=== PATIENT | female | born 1960 | race Caucasian/White ===

== ENCOUNTER 2016-11-27 23:01 | Emergency (ER) | payer OTHER ==
[~2016-11-27] VITALS: Ht 162.6 cm; Wt 99.8 kg
[~2016-11-27 23:01] MED LIST: ACTOS15 MG PO; AUGMENTIN 875 M1 TAB PO; BENADRYL25 M3 PO; GLUCOPHAGE500 MG PO; LANTUS INS100 UNITS/ SUBQ; LASIX40 M1 PO; MOTRIN600 M1 PO; NEURONTIN300 MG PO; NORCO 5/325 MG1 TAB PO; NOVOLIN INSULIN SUBQ; ORETIC25 MG PO; PAXIL40 MG PO; PRAVACHOL40 MG PO; VASOTEC2.5 MG PO
[2016-11-27 23:04] VITALS: BP 119/53
--- NOTE | 2016-11-27 23:18 | NUR ---
PATIENT AMBULATED TO ER BED 5.
--- NOTE | 2016-11-27 23:32 | NUR ---
56/F PRESENT TO ER C/O EPIGASTRIC PAIN x 8 DAYS. PAIN 10/10 BURNING CONTINOUS. PT STATES SHE WAS TAKING PEPTO BISMOL OTC BEFORE ER VISIT. AAOx4, PERRLA, BREATHING EVEN AND UNLABORED. ERMD NOTIFIED OF PATIENT STATUS.
--- NOTE | 2016-11-27 23:35 | NUR ---
PATIENT BEING EVALUATED BY DR. DICKERSON.
[2016-11-27] MEDS ORDERED: NACL 0.9% 500 ML IV ONE (23:36)
[2016-11-27] MEDS ORDERED: ONDANSETRON 4 MG/2 ML VIAL IVP ONE (23:40)
[2016-11-27] MEDS ORDERED: KETOROLAC 30 MG/ML VIAL IVP ONE (23:40)
[2016-11-28] MEDS ORDERED: INSULIN HUMAN REGULAR 100 UNITS/ML 10 ML VIAL IVP ONE (00:25)
[2016-11-28] MEDS ORDERED: NACL 0.9% 1,000 ML IV ONE (00:25)
[2016-11-28 02:17] VITALS: BP 121/63
--- NOTE | 2016-11-28 02:17 | NUR ---
Patient discharged with v/s stable. Written and verbal after care instructions given and explained. Patient alert, oriented and verbalized understanding of instructions. Ambulatory with steady gait. All questions addressed prior to discharge. ID band removed. Patient advised to follow up with PMD. Rx of OMEPRAZOLE, MAALOX given. Patient educated on indication of medication including possible reaction and side effects. Opportunity to ask questions provided and answered.
== END 2016-11-28 02:17 | disposition home or self-care (01) ==
LOC: MED 23:01
DX: K29.70 Gastritis, unspecified, without bleeding (principal); E11.65 Type 2 diabetes mellitus with hyperglycemia; J45.909 Unspecified asthma, uncomplicated; K21.9 Gastro-esophageal reflux disease without esophagitis; I11.0 Hypertensive heart disease with heart failure; I50.9 Heart failure, unspecified; Z85.42 Personal history of malignant neoplasm of other parts of uterus; Z79.899 Other long term (current) drug therapy; Z88.6 Allergy status to analgesic agent; Z88.2 Allergy status to sulfonamides; Z88.8 Allergy status to other drugs, medicaments and biological substances
CPT/HCPCS: 36415; 76705; 80053; 83690; 85025; 93005; 96361; 96374; 96375; 99285; J1815; J1885; J2405; J7030; Q0092

== ENCOUNTER 2016-12-26 00:16 | Inpatient (IN) | payer OTHER ==
[~2016-12-26] VITALS: Ht 162.6 cm; Wt 89.8 kg
[~2016-12-26 00:16] MED LIST changes: -ACTOS15 MG PO; +AMOX-842 PO; -AUGMENTIN 875 M1 TAB PO; -BENADRYL25 M3 PO; +FURO-570 PO; +GABA300C PO; -GLUCOPHAGE500 MG PO; +HYDR-4446 PO; +IBUP-2213 PO; -LANTUS INS100 UNITS/ SUBQ; -LASIX40 M1 PO; +METF500T PO; -MOTRIN600 M1 PO; -NEURONTIN300 MG PO; -NORCO 5/325 MG1 TAB PO; -NOVOLIN INSULIN SUBQ; +ORE25 PO; -ORETIC25 MG PO; +PARO40TA1 PO; -PAXIL40 MG PO; +PRAV40TA1 PO; -PRAVACHOL40 MG PO; +VAS2.5 PO; -VASOTEC2.5 MG PO
[2016-12-26 00:30] VITALS: BP 135/75
--- NOTE | 2016-12-26 01:56 | NUR ---
PT TAKEN TO OF3
[2016-12-26] MEDS ORDERED: NACL 0.9% 1,000 ML IV ONE (02:15)
[2016-12-26] MEDS ORDERED: ONDANSETRON 4 MG/2 ML VIAL IVP ONE (02:15)
--- NOTE | 2016-12-26 02:20 | NUR ---
Dr. Potter evaluating patient
--- NOTE | 2016-12-26 02:22 | NUR ---
PT TAKEN TO XRAY
--- NOTE | 2016-12-26 02:41 | NUR ---
PT MOVED TO BED 8
[2016-12-26 02:44] LABS: WHITE BLOOD COUNT (AUTO) 8.9 K/uL (4.8-10.8)
--- NOTE | 2016-12-26 02:45 | NUR ---
PATIENT PRESENTS TO ED WITH VOMITING, DIZZINESS, WEAKNESS , SHAKING HALF AN HOUR AG. PT SKIN IS PINK/WARM/DRY; AAOX4 WITH EVEN AND STEADY GAIT; LUNGS CLEAR BL; HR EVEN AND REGULAR; PT DENIES ANY FEVER, CP, SOB, OR COUGH AT THIS TIME; PATIENT STATES PAIN OF 10/10 AT THIS TIME; VSS; PATIENT POSITIONED FOR COMFORT; HOB ELEVATED; BEDRAILS UP X2; BED DOWN. ER MD MADE AWARE OF PT STATUS.
[2016-12-26 02:47] LABS: BASOPHILS # (AUTO) 0.3 K/uL (0.00-0.22); BASOPHILS % (AUTO) 3.2 % (0.0-2.0); EOSINOPHILS # (AUTO) 0.2 K/uL (0-0.4); EOSINOPHILS % (AUTO) 2.3 % (0.0-4.0); HEMATOCRIT 43.7 % (36-48); HEMOGLOBIN 14.2 g/dL (12.0-16.0); LYMPHOCYTES # (AUTO) 2.7 K/uL (2.5-16.5); LYMPHOCYTES % (AUTO) 30.8 % (20.5-51.1); MEAN CORPUSCULAR HEMOGLOBIN 28 pg (27-31); MEAN CORPUSCULAR HGB CONC 33 g/dL (33-37); MEAN CORPUSCULAR VOLUME 87 fL (80-94); MONOCYTES # (AUTO) 1.1 K/uL (0.8-1.0); MONOCYTES % (AUTO) 12.2 % (1.7-9.3); NEUTROPHILS # (AUTO) 4.6 K/uL (1.8-7.7); NEUTROPHILS % (AUTO) 51.5 % (42.2-75.2); PLATELET COUNT (AUTO) 248 K/uL (140-450); RED BLOOD CELL COUNT(AUTO) 5.02 MIL/uL (4.20-5.40); RED CELL DISTRIBUTION WIDTH 11.7 % (11.6-13.7)
[2016-12-26 02:56] LABS: ANION GAP 19.7 (8-16); CALCIUM 9.6 mg/dL (8.5-10.1); CARBON DIOXIDE 23.1 mmol/L (21-32); CREATININE 1.8 mg/dL (0.6-1.3); POTASSIUM 3.8 mmol/L (3.5-5.1)
[2016-12-26 03:02] LABS: ALBUMIN 3.8 g/dL (3.4-5.0); TOTAL BILIRUBIN 0.3 mg/dL (0.0-1.0); TOTAL PROTEIN, SERUM 10.1 g/dL (6.4-8.2)
[2016-12-26 03:04] LABS: PARTIAL THROMBOPLASTIN TIME 23.4 secs (22-35.6); PROTHROMBIN TIME 10.6 secs (10.8-13.4)
[2016-12-26] MEDS ORDERED: ONDANSETRON 4 MG/2 ML VIAL IVP PRN (04:10)
--- NOTE | 2016-12-26 05:15 | NUR ---
Admitted from ER, ABLE TO AMBULATE FROM WHEELCHAIR TO BED,with chief complaint of ABDOMINAL PAIN, N/V,D AND CHEST PAIN , 56 y/o ,Female, Cooperative,oriented to call light, bed, phone,television, bathroom, smoking policy, visiting hours, procedures, ID bracelet on. Belongings list checked. BODY CHECKED DONE, NOTED DRYNESS ON BOTH PLANTAR, SKIN WARM TO TOUCH RESP. EVEN AND UNLABORED,NO SOB NOTED, SISTER AT BEDSIDE
--- NOTE | 2016-12-26 05:19 | NUR ---
Patient will be admitted to care of DR LIZARRAGA. Admited to TELE. Will go to room 112B. Belongings list completed. Report to DIANNE BARBOUR.
[2016-12-26 05:20] VITALS: BP 119/54
[2016-12-26 05:38] LABS: CREATINE KINASE MB 0.9 ng/mL (0-3.6)
[2016-12-26] MEDS: NACL 0.9% 1,000 ML IV SCH ×3 (06:10→20:06)
--- NOTE | 2016-12-26 06:24 | NUR ---
BS 335, PT AAO.
[2016-12-26] MEDS: INSULIN LISPRO SLIDING SCALE 100 UNITS/ML VIAL SUBQ PRN ×4 (06:28→20:29)
--- NOTE | 2016-12-26 07:01 | NUR ---
WILL ENDORSE TO INCOMING SHIFT SISTER REQUEST PT TO BE EVALUATED FOR HER DEPRESSION,PT CALM NO CRYING NOTED, ANSWER QUESTION IN A SIMPLE WAY AND THANKFUL TO THE NURSE,IVF ONGOING AT THIS TIME WELL TOLERATED
--- NOTE | 2016-12-26 07:11 | NUR ---
REPORT GIVEN TO NICO RN AT BEDSIDE PT AAO, ENDORSED TO FOLLOW UP WITH THE REQUEST OF SISTER REGARDING DEPRESSION, DENTAL CHECK UP AND THE NEED FOR SEQUENTIAL
--- NOTE | 2016-12-26 07:20 | NUR ---
RECEIVED REPORT FROM DIANNE BARBOUR. PT IS RESTING IN BED, A/OX4, AMBULATORY, SKIN IS INTACT, IV IS ON THE LT AC, PATENT, INTACT, FLUSHING WELL, NO S/S OF RESPIRATORY DISTRESS OR DISCOMFORT NOTED, SAFETY/FALL PRECAUTIONS ARE IN PLACE, DISCUSSED PLAN OF CARE WITH PT, PT VERBALIZED UNDERSTANDING, CALL LIGHT IS WITHIN REACH, WILL CONTINUE TO MONITOR.
[2016-12-26 07:44] LABS: APPEARANCE,URINE CLEAR (CLEAR); BILIRUBIN,URINE 1+ (NEGATIVE); BLOOD, URINE TRACE-I (NEGATIVE); COLOR,URINE YELLOW (YELLOW); LEUKOCYTE ESTERASE ,URINE NEGATIVE (NEGATIVE); NITRITE, URINE NEGATIVE (NEGATIVE); PROTEIN,URINE NEGATIVE (NEGATIVE); UGLUCOSE 3+ (NEGATIVE); UROBILINOGEN,URINE 0.2 EU/dL (0.2 - 1)
[2016-12-26 07:56] LABS: ICTOTEST NEGATIVE (NEGATIVE); RBC,URINE 0-5 (RARE) /HPF (0-5)
[2016-12-26 07:57] LABS: BACTERIA,URINE 2+ /HPF (None Seen); YEAST,URINE Rare /HPF (None Seen)
[2016-12-26 08:00] VITALS: BP 121/59
--- NOTE | 2016-12-26 09:14 | NUR ---
PATIENT HAS BEEN SCREENED AND CATEGORIZED HIGH NUTRITION RISK. PATIENT WILL BE SEEN WITHIN 1-2 DAYS OF ADMISSION. 12/26/16-12/27/[address]
[2016-12-26] MEDS: ENOXAPARIN 40 MG/0.4 ML SYR SUBQ SCH (09:38)
--- NOTE | 2016-12-26 10:00 | NUR ---
IV ON THE LEFT AC INFILTRATED, IV REMOVED, CATHETER TIP IS INTACT, WILL START A NEW IV.
--- NOTE | 2016-12-26 10:30 | NUR ---
NEW IV INSERTED ON THE RT FOREARM, 22 GAUGE, PATENT, INTACT, FLUSHING WELL.
[2016-12-26 10:48] LABS: CREATINE KINASE MB 0.6 ng/mL (0-3.6)
[2016-12-26 12:00] VITALS: BP 122/59
--- NOTE | 2016-12-26 12:30 | NUR ---
PT SLEEPING IN BED, NO S/S OF RESPIRATORY DISTRESS OR DISCOMFORT NOTED, CALL LIGHT WITHIN REACH.
--- NOTE | 2016-12-26 14:35 | NUR ---
PT RESTING IN BED AT THIS TIME, FAMILY IS AT BEDSIDE, CALL LIGHT WITHIN REACH.
--- NOTE | 2016-12-26 15:58 | NUR ---
12/26/16 RD INITIAL ASSESSMENT COMPLETED PLEASE REFER TO NUTRITION ASSESSMENT UNDER CARE ACTIVITY FOR ESTIMATED NUTRITIONAL NEEDS. RD RECOMMENDATIONS: 1. CONTINUE CCHO 60 GM DIET MEDICALLY APPROPRIATE. -CONSIDER DOWNGRADING DIET IF PT CANNOT TOLERATE DIET OR CONSULT ST FOR TEXTURE RECOMMENDATIONS PER SWALLOW EVAL. 2. RD WILL ADD DIET HEALTHSHAKE TID WITH MEALS FOR ADDITIONAL KCAL AND PROTEIN. -ONE DIET HEALTH SHAKE PROVIDES 200 KCAL AND 7 GM OF PROTEIN. 3. ENCOURAGE INCREASED PO INTAKE PT WITH POOR APPETITE AND POOR PO INTAKE. 4. IF PT STILL WITH POOR PO INTAKE, CONSIDER ADDING BOOST DM TID WITH MEALS FOR ADDITIONAL ENERGY REPLETION. 5. RD WILL F/U 2-3 DAYS; HIGH RISK. NI MERINO RD
[2016-12-26 16:00] VITALS: BP 134/65
[2016-12-26] MEDS: BLOOD GLUCOSE MONITORING 1 DEV DEV FS SCH ×2 (16:20→20:30)
--- NOTE | 2016-12-26 16:35 | NUR ---
PT SITTING ON CHAIR AT BEDSIDE, FAMILY IS AT BEDSIDE, CALL LIGHT WITHIN REACH.
[2016-12-26] MEDS: GABAPENTIN 300 MG CAP PO SCH (16:39)
--- NOTE | 2016-12-26 19:07 | NUR ---
PAGED DR. LIZARRAGA TO OBTAIN MEDICATION ORDER FOR HEADACHE.
--- NOTE | 2016-12-26 19:10 | NUR ---
PER DR. DESAI'S URBAN RENEWAL MANAGER DOCTOR ORDER TYLENOL 650MG, Q4HR, PRN MODERATE PAIN AND NORCO 5/325MG Q6H, PRN, SEVERE PAIN.
--- NOTE | 2016-12-26 19:15 | NUR ---
ENDORSED PT TO DIANNE MTZ. FOR CONTINUITY OF CARE. PT STABLE AT THIS TIME, FAMILY IS AT BEDSIDE.
--- NOTE | 2016-12-26 19:20 | NUR ---
RECEIVED PT AWAKE SITTING ON CHAIR TALKING TO FAMILY MEMBERS IN THE ROOM, VITAL SIGNS STABLE, COMPLAINING OF HEADACHE, WILL MEDICATE PRN, NO DIARRHEA EPISODE AT THIS TIME, AWARE TO COLLECT STOOL FOR TEST, SPECIMEN BOTTLE AT BEDSIDE, PLAN OF CARE DISCUSSED, SAFETY MEASURES IN PLACE, CALL LIGHT WITHIN REACH.
[2016-12-26 19:21] LABS: CREATINE KINASE MB 0.4 ng/mL (0-3.6)
[2016-12-26 20:00] VITALS: BP 128/67
[2016-12-26] MEDS ORDERED: ACETAMINOPHEN 325 MG TAB PO PRN (20:00)
[2016-12-26] MEDS ORDERED: HYDROcodone/APAP 5/325 MG 1 TAB TAB PO PRN (20:00)
--- NOTE | 2016-12-26 20:30 | NUR ---
BLOOD SUGAR CHECKED WITH 213 RESULT, COVERAGE GIVEN, MEDICATED PRN FOR HEADACHE WITH NORCO PO, ALL NEEDS ATTENDED.
[2016-12-26] MEDS ORDERED: SIMVASTATIN 20 MG TAB PO SCH (21:00)
[2016-12-27] VITALS: BP 124/70
--- NOTE | 2016-12-27 | NUR ---
PT SLEEPING, EASILY AROUSABLE, VITAL SIGNS STABLE, DENIES ANY PAIN, NO EPISODE OF DIARRHEA NOTED, IVF INFUSING WELL, MONITORED CLOSELY.
[2016-12-27] MEDS: NACL 0.9% 1,000 ML IV SCH ×3 (00:19→12:11)
--- NOTE | 2016-12-27 03:50 | NUR ---
PT SLEEPING, EASILY AROUSABLE, VITAL SIGNS STABLE, DENIES ANY PAIN, MONITORED CLOSELY.
[2016-12-27 04:00] VITALS: BP 115/61
[2016-12-27 05:57] LABS: BASOPHILS # (AUTO) 0.2 K/uL (0.00-0.22); BASOPHILS % (AUTO) 3.3 % (0.0-2.0); EOSINOPHILS # (AUTO) 0.2 K/uL (0-0.4); EOSINOPHILS % (AUTO) 3.6 % (0.0-4.0); HEMATOCRIT 33.3 % (36-48); HEMOGLOBIN 10.7 g/dL (12.0-16.0); LYMPHOCYTES # (AUTO) 2.5 K/uL (2.5-16.5); LYMPHOCYTES % (AUTO) 43.2 % (20.5-51.1); MEAN CORPUSCULAR HEMOGLOBIN 28 pg (27-31); MEAN CORPUSCULAR HGB CONC 32 g/dL (33-37); MEAN CORPUSCULAR VOLUME 88 fL (80-94); MONOCYTES # (AUTO) 0.4 K/uL (0.8-1.0); MONOCYTES % (AUTO) 7.8 % (1.7-9.3); NEUTROPHILS # (AUTO) 2.4 K/uL (1.8-7.7); NEUTROPHILS % (AUTO) 42.1 % (42.2-75.2); PLATELET COUNT (AUTO) 172 K/uL (140-450); RED BLOOD CELL COUNT(AUTO) 3.79 MIL/uL (4.20-5.40); RED CELL DISTRIBUTION WIDTH 11.8 % (11.6-13.7); WHITE BLOOD COUNT (AUTO) 5.7 K/uL (4.8-10.8)
[2016-12-27] MEDS: INSULIN LISPRO SLIDING SCALE 100 UNITS/ML VIAL SUBQ PRN ×2 (06:03→12:32)
--- NOTE | 2016-12-27 06:05 | NUR ---
AMBULATED TO BR AND VOIDED FREELY, NO DIARRHEA THE WHOLE SHIFT, BLOOD SUGAR CHECKED WITH 156 RESULT, COVERAGE GIVEN, DENIES HEADACHE, IVF INFUSING WELL, MONITORED CLOSELY.
[2016-12-27 06:19] LABS: ANION GAP 13.5 (8-16); CALCIUM 7.8 mg/dL (8.5-10.1); CARBON DIOXIDE 24.5 mmol/L (21-32); CREATININE 1.1 mg/dL (0.6-1.3)
[2016-12-27 06:30] LABS: MAGNESIUM 1.8 mg/dL (1.8-2.4); PHOSPHORUS 3.2 mg/dL (2.5-4.9)
[2016-12-27] MEDS: BLOOD GLUCOSE MONITORING 1 DEV DEV FS SCH ×2 (06:44→11:46)
--- NOTE | 2016-12-27 07:29 | NUR ---
PT AWAKE, NO SIGNS OF DISTRESS, REPORT GIVEN TO DIANNE WALSH FOR CONTINUITY OF CARE.
--- NOTE | 2016-12-27 07:30 | NUR ---
RECEIVED REPORT FROM DIANNE MTZ. PT IS RESTING IN BED, A/OX4, AMBULATORY, SKIN IS INTACT, IV IS ON THE RIGHT FA, PATENT, INTACT, FLUSHING WELL, NO S/S OF RESPIRATORY DISTRESS OR DISCOMFORT NOTED, SAFETY/FALL PRECAUTIONS ARE IN PLACE, DISCUSSED PLAN OF CARE WITH PT, PT VERBALIZED UNDERSTANDING, CALL LIGHT IS WITHIN REACH, WILL CONTINUE TO MONITOR.
[2016-12-27 08:00] VITALS: BP 114/58
--- NOTE | 2016-12-27 08:27 | NUR ---
DUE MEDICATIONS GIVEN, PT TOLERATED WELL, NO S/S OF RESPIRATORY DISTRESS OR DISCOMFORT NOTED, CALL LIGHT WITHIN REACH, WILL CONTINUE TO MONITOR.
[2016-12-27] MEDS: GABAPENTIN 300 MG CAP PO SCH ×2 (08:28→12:37)
[2016-12-27] MEDS: ENOXAPARIN 40 MG/0.4 ML SYR SUBQ SCH (08:34)
[2016-12-27] MEDS ORDERED: PARoxetine 20 MG TAB PO SCH (09:00)
[2016-12-27] MEDS ORDERED: CLINICAL MONITORING MC SCH (09:00)
[2016-12-27] MEDS ORDERED: HYDROCHLOROTHIAZIDE 25 MG TAB PO SCH (09:00)
[2016-12-27] MEDS ORDERED: ASPIRIN 81 MG TAB.CHEW PO SCH (09:00)
[2016-12-27] MEDS ORDERED: ENALAPRIL 10 MG TAB PO SCH (09:00)
[2016-12-27] MEDS ORDERED: NON-FORMULARY ITEM (Pravastatin Sodium* (Pravachol*) 40 MG) PO SCH (09:00)
--- NOTE | 2016-12-27 10:30 | NUR ---
PT SLEEPING IN BED AT THIS TIME, CALL LIGHT WITHIN REACH, WILL CONTINUE TO MONITOR.
[2016-12-27 12:00] VITALS: BP 119/61
--- NOTE | 2016-12-27 12:30 | NUR ---
PT SITTING IN BED, WATCHING TV, CALL LIGHT IS WITHIN REACH, WILL CONTINUE TO MONITOR.
--- NOTE | 2016-12-27 14:40 | NUR ---
PT SITTING ON CHAIR AT THE SIDE OF THE BED, SISTER IS AT BEDSIDE.
--- NOTE | 2016-12-27 16:00 | NUR ---
DISCHARGE INSTRUCTIONS GIVEN, ID WRIST BAND REMOVED, IV REMOVED CATHETER TIP IS INTACT. PT STABLE UPON DISCHARGE ACCOMPANIED BY HER SISTER.
== END 2016-12-27 16:00 | disposition home or self-care (01) | DRG 203 ==
LOC: MED 00:16 → OBSVTOIN 04:13 → INTOOBSV 04:13 → UNDOADMOB 04:13 → MTU 04:13 → OBSVTOIN 13:44 → MTU 13:44 → UNDODISIN 17:30
PROVIDERS: ADMIT Hospitalist; ATTEND Hospitalist
DX: R07.89 Other chest pain (principal); E11.22 Type 2 diabetes mellitus with diabetic chronic kidney disease; I13.0 Hypertensive heart and chronic kidney disease with heart failure and stage 1 through stage 4 chronic kidney disease, or unspecified chronic kidney disease; I50.9 Heart failure, unspecified; A08.4 Viral intestinal infection, unspecified; F32.9 Major depressive disorder, single episode, unspecified; E78.5 Hyperlipidemia, unspecified; E66.9 Obesity, unspecified; N18.9 Chronic kidney disease, unspecified; J45.909 Unspecified asthma, uncomplicated; K21.9 Gastro-esophageal reflux disease without esophagitis; Z88.1 Allergy status to other antibiotic agents; Z88.8 Allergy status to other drugs, medicaments and biological substances; Z85.42 Personal history of malignant neoplasm of other parts of uterus; Z68.34 Body mass index [BMI] 34.0-34.9, adult; Z88.2 Allergy status to sulfonamides
CPT/HCPCS: 36415; 71010; 80048; 80053; 81001; 82550; 82553; 82948; 83735; 84100; 84484; 85025; 85610; 85730; 87081; 87086; 93005; 96361; 96374; 99285; J1650; J1815; J2405; J7030

== ENCOUNTER 2018-04-09 00:21 | Emergency (ER) | payer OTHER ==
[~2018-04-09] VITALS: Ht 172.7 cm; Wt 98.2 kg
[~2018-04-09 00:21] MED LIST changes: +ACET-8386 PO; -AMOX-842 PO; -HYDR-4446 PO
[2018-04-09 00:29] VITALS: BP 196/86
--- NOTE | 2018-04-09 00:35 | NUR ---
PT PRESENTS TO ED WITH C/O COUGH AND SOB. PT DENIES ANY CHEST PAIN AT THIS TIME. LUNGS CLEAR BILATERALLY UPON ASCULATATION. CHEST RISE IS EQUAL AND RESPIRATIONS ARE UNLABORED. PT ALSO REPORTS BLOOD IN STOOL X TODAY. PT DENIES ANY HX OF GI BLEED OR ANY GI HISTORY. NO N/V/D. BOWEL SOPUNDS HEARD X 4 QUADRANTS. ABDOMEN IS SOFT AND NON TENDER UPON PALAPTION. PT PLACED IN BED. PENDING MD MARIE.
--- NOTE | 2018-04-09 00:54 | NUR ---
EKG PERFORMED AT BEDSIDE. PT COVERED IN GOWN DURING PROCEDURE WITH FAMILY MEMBER PRESENT.
--- NOTE | 2018-04-09 01:40 | NUR ---
LAB AT BEDSIDE.
[2018-04-09 01:48] LABS: BASOPHILS # (AUTO) 0.2 K/uL (0.00-0.22); BASOPHILS % (AUTO) 2.8 % (0.0-2.0); EOSINOPHILS # (AUTO) 0.2 K/uL (0-0.4); EOSINOPHILS % (AUTO) 3.4 % (0.0-4.0); HEMATOCRIT 31.2 % (36-48); HEMOGLOBIN 10.1 g/dL (12.0-16.0); LYMPHOCYTES # (AUTO) 1.9 K/uL (2.5-16.5); LYMPHOCYTES % (AUTO) 27.8 % (20.5-51.1); MEAN CORPUSCULAR HEMOGLOBIN 29 pg (27-31); MEAN CORPUSCULAR HGB CONC 32 g/dL (33-37); MEAN CORPUSCULAR VOLUME 88.3 fL (80-94); MONOCYTES # (AUTO) 0.4 K/uL (0.8-1.0); MONOCYTES % (AUTO) 5.7 % (1.7-9.3); NEUTROPHILS # (AUTO) 4.2 K/uL (1.8-7.7); NEUTROPHILS % (AUTO) 60.3 % (42.2-75.2); PLATELET COUNT (AUTO) 240 K/uL (140-450); RED BLOOD CELL COUNT(AUTO) 3.54 MIL/uL (4.20-5.40); RED CELL DISTRIBUTION WIDTH 13.4 % (11.6-13.7)
--- NOTE | 2018-04-09 02:02 | NUR ---
PT RESTING IN BED, NO COMPLAINTS AT THIS TIME. VSS.
[2018-04-09 02:06] LABS: ANION GAP 10.6 (8-16); CARBON DIOXIDE 24.4 mmol/L (21-32); CREATININE 2.8 mg/dL (0.6-1.3)
[2018-04-09 02:12] LABS: ALBUMIN 2.5 g/dL (3.4-5.0); TOTAL BILIRUBIN 0.2 mg/dL (0.0-1.0)
[2018-04-09] MEDS ORDERED: ERGO2000 PO (02:15)
[2018-04-09] MEDS ORDERED: GABA100C PO (02:15)
[2018-04-09] MEDS ORDERED: ASPI81CT PO (02:15)
[2018-04-09] MEDS ORDERED: PRAV40TA1 PO (02:15)
[2018-04-09] MEDS ORDERED: LORA1T PO (02:15)
[2018-04-09] MEDS ORDERED: ALBUTEROL 0.083% 2.5 MG/3 ML NEBU INH ONE (04:05)
[2018-04-09] MEDS ORDERED: IPRATROPIUM 0.02% 0.5 MG/2.5 ML NEBU INH ONE (04:05)
--- NOTE | 2018-04-09 04:15 | NUR ---
RT AT BEDSIDE AT THIS TIME.
--- NOTE | 2018-04-09 05:33 | NUR ---
PENDING DISCHARGE ORDERS FROM DR HOFF AT THIS TIME.
[2018-04-09 06:53] VITALS: BP 168/88
== END 2018-04-09 06:53 | disposition home or self-care (01) ==
LOC: MED 00:21
DX: R05 Cough (principal); R06.02 Shortness of breath; J45.909 Unspecified asthma, uncomplicated; I10 Essential (primary) hypertension; E11.9 Type 2 diabetes mellitus without complications
CPT/HCPCS: 36415; 71045; 80053; 82948; 83605; 84484; 85025; 86886; 86900; 86901; 93005; 94640; 99285; J7613; J7644; Q0092

== ENCOUNTER 2018-06-19 18:56 | Emergency (ER) | payer OTHER ==
[~2018-06-19] VITALS: Ht 162.6 cm; Wt 97.1 kg
[~2018-06-19 18:56] MED LIST changes: -ACET-8386 PO; +ASPI81CT PO; +ERGO2000 PO; +GABA100C PO; -GABA300C PO; +LORA1T PO; -METF500T PO; -ORE25 PO
[2018-06-19 18:57] VITALS: BP 179/75
--- NOTE | 2018-06-19 18:57 | NUR ---
PT BIBA BLS TO BED 6
--- NOTE | 2018-06-19 19:00 | NUR ---
PT BIBA S/P MECH FALL AT HOME , C/O RT ARM/ SHOULDER PAIN AND RT LEG PAIN. +CMS TO RT ARM , NO OBVIOUS DEFORMITY NOTED TO SHOULDER. PT IS AWAKE AND ACTING APPROPRIATE, PT STATES SHE "CANT SEE WELL" AND TRIPPED OVER "SOMETHING". PMH HTN, HLD, DM
--- NOTE | 2018-06-19 19:00 | NUR ---
PT TO XRAY VIA [facility].
--- NOTE | 2018-06-19 19:42 | NUR ---
PT RETURNED FROM XRAY.
--- NOTE | 2018-06-19 19:42 | NUR ---
PT RETURN FROM RADIOLOGY
[2018-06-19] MEDS ORDERED: ONDANSETRON 4 MG ODT PO ONE (19:55)
[2018-06-19] MEDS ORDERED: HYDROcodone/APAP 10/325 MG 1 TAB TAB PO ONE (19:55)
--- NOTE | 2018-06-19 20:25 | NUR ---
X-Ray at bedside.
--- NOTE | 2018-06-19 21:15 | NUR ---
PT C/O PAIN AND WANTS PAIN RELIEF SOONER THAN PO PILLS WILL TAKE EFFECT, ER MD AWARE OF PT STATUS.
[2018-06-19] MEDS ORDERED: MORPHINE SULFATE 4 MG/ML SYR IVP ONE (21:25)
[2018-06-19] MEDS: CYCLOBENZAPRINE 10 MG TAB PO ONE ×2 (21:25→22:05)
[2018-06-19] MEDS ORDERED: diphenhydrAMINE 50 MG/ML VIAL IVP ONE (21:25)
[2018-06-19 22:13] VITALS: BP 167/68
--- NOTE | 2018-06-19 22:13 | NUR ---
Patient discharged with v/s stable. Written and verbal after care instructions given and explained. Patient alert, oriented and verbalized understanding of instructions. Wheel Chair Assisted with to car. All questions addressed prior to discharge. ID band removed. Patient advised to follow up with PMD. Rx of ISABEL CARLTON given. Patient educated on indication of medication including possible reaction and side effects. Opportunity to ask questions provided and answered.
== END 2018-06-19 22:13 | disposition home or self-care (01) ==
LOC: MED 18:56
DX: S42.201A Unspecified fracture of upper end of right humerus, initial encounter for closed fracture (principal); S20.211A Contusion of right front wall of thorax, initial encounter; J45.909 Unspecified asthma, uncomplicated; I11.0 Hypertensive heart disease with heart failure; I50.9 Heart failure, unspecified; E11.9 Type 2 diabetes mellitus without complications; K21.9 Gastro-esophageal reflux disease without esophagitis; Z88.1 Allergy status to other antibiotic agents; Z88.8 Allergy status to other drugs, medicaments and biological substances; Z88.2 Allergy status to sulfonamides; Z79.1 Long term (current) use of non-steroidal anti-inflammatories (NSAID); Z79.899 Other long term (current) drug therapy; Z85.42 Personal history of malignant neoplasm of other parts of uterus; W01.0XXA Fall on same level from slipping, tripping and stumbling without subsequent striking against object, initial encounter; Y93.89 Activity, other specified; Y92.89 Other specified places as the place of occurrence of the external cause; Y99.8 Other external cause status
CPT/HCPCS: 71101; 73030; 73060; 73080; 73110; 96374; 96375; 99283; J1200; J2270; Q0092; Q0162

== ENCOUNTER 2020-02-07 10:17 | Inpatient (IN) | payer OTHER, SELFPAY ==
[~2020-02-07] VITALS: Ht 160 cm; Wt 86.6 kg
[2020-02-07 10:24] VITALS: BP 147/60
--- NOTE | 2020-02-07 10:25 | NUR ---
BIBA C/O FEVER, SOB, AND COUGH X THIS AM. NON-PRODUCTIVE COUGH. LUNGS CLEAR BILTERALLY. RR EVEN AND UNLABORED. PT ON 95% RA. FEBRILE. HR 102. ST. PT STATES SHE WAS TESTED FOR COVID 2 WEEKS AGO AND IT RETURNED NEGATIVE. DENIES EXPOSURE. DIALYSIS M,W,F-DID NOT RECEIVE TODAY, L ARM ASCESS PMH- HTN, GERD, DM
--- NOTE | 2020-02-07 10:27 | NUR ---
ORAL TEMP 102.4, TYLENOL PO ADMINISTERED
[2020-02-07] MEDS ORDERED: ACETAMINOPHEN EXTRA STRENGTH 500 MG TAB PO ONE (10:30)
[2020-02-07] MEDS ORDERED: AMLO10TA PO (10:40)
[2020-02-07] MEDS ORDERED: OMEP-283 PO (10:40)
[2020-02-07] MEDS ORDERED: OMEP20TC22 PO (10:40)
[2020-02-07] MEDS ORDERED: GABA300C PO (10:43)
[2020-02-07] MEDS ORDERED: SEVE800T6 PO (10:43)
[2020-02-07] MEDS ORDERED: SYN.075 PO (10:46)
[2020-02-07] MEDS ORDERED: PAX20 PO (10:46)
[2020-02-07] MEDS ORDERED: FURO-572 PO (10:46)
[2020-02-07] MEDS ORDERED: VIT D2 PO (10:46)
[2020-02-07] MEDS ORDERED: ASPI-1822 PO (10:47)
[2020-02-07] MEDS ORDERED: NACL 0.9% 1,000 ML IV ONE (10:50)
--- NOTE | 2020-02-07 11:08 | NUR ---
IV INSERTED,LABS DRAWN BEDSIDE, BOLUS STARTED
[2020-02-07 11:09] LABS: BASOPHILS # (AUTO) 0.1 K/uL (0.00-0.22); BASOPHILS % (AUTO) 0.5 % (0.0-2.0); EOSINOPHILS # (AUTO) 0.1 K/uL (0-0.4); HEMATOCRIT 23.8 % (36-48); HEMOGLOBIN 7.5 g/dL (12.0-16.0); LYMPHOCYTES # (AUTO) 0.7 K/uL (2.5-16.5); LYMPHOCYTES % (AUTO) 5.5 % (20.5-51.1); MEAN CORPUSCULAR HEMOGLOBIN 28 pg (27-31); MEAN CORPUSCULAR HGB CONC 31 g/dL (33-37); MEAN CORPUSCULAR VOLUME 89.2 fL (80-94); MONOCYTES # (AUTO) 0.8 K/uL (0.8-1.0); MONOCYTES % (AUTO) 6.5 % (1.7-9.3); NEUTROPHILS # (AUTO) 11.2 K/uL (1.8-7.7); NEUTROPHILS % (AUTO) 86.5 % (42.2-75.2); PLATELET COUNT (AUTO) 314 K/uL (140-450); RED BLOOD CELL COUNT(AUTO) 2.67 MIL/uL (4.20-5.40); RED CELL DISTRIBUTION WIDTH 15.4 % (11.6-13.7); WHITE BLOOD COUNT (AUTO) 12.9 K/uL (4.8-10.8)
[2020-02-07 11:32] LABS: ALBUMIN 2.5 g/dL (3.4-5.0); ANION GAP 22.8 (8-16); POTASSIUM 5.8 mmol/L (3.5-5.1); TOTAL BILIRUBIN 0.3 mg/dL (0.0-1.0)
--- NOTE | 2020-02-07 11:33 | NUR ---
CR 11.6 AND BUN 83, REPORTED TO DR AMAYA
[2020-02-07 11:34] LABS: CREATININE 11.6 mg/dL (0.6-1.3)
--- NOTE | 2020-02-07 13:18 | NUR ---
PT NOW AFEBRILE. CURRENT TEMP 98.7 ORALLY.
--- NOTE | 2020-02-07 13:49 | NUR ---
PT MONIQUE MADE AWARE OF PTS POTASSIUM
[2020-02-07] MEDS ORDERED: ONDANSETRON 4 MG/2 ML VIAL IVP PRN (13:55)
[2020-02-07] MEDS ORDERED: HYDROcodone/APAP 5/325 MG 1 TAB TAB PO PRN ×2 (13:55)
[2020-02-07] MEDS ORDERED: ACETAMINOPHEN 325 MG TAB PO PRN (13:55)
[2020-02-07] MEDS ORDERED: CALCIUM GLUCONATE 10% 1000 MG/10 ML VIAL IVP SCH (14:30)
[2020-02-07] MEDS ORDERED: SODIUM ZIRCONIUM CYCLOSILICATE 10 GM POWD.PACK PO SCH (14:30)
[2020-02-07] MEDS ORDERED: LEVOFLOXACIN 500 MG/D5W PREMIX 100 ML IV SCH (14:30)
--- NOTE | 2020-02-07 15:00 | NUR ---
LASIX IVP ADMINISTERED BY LISS DEAN
[2020-02-07] MEDS: FUROSEMIDE 40 MG/4 ML VIAL IVP SCH ×2 (15:04→16:34)
--- NOTE | 2020-02-07 15:35 | NUR ---
BS 285, INSULIN TO BE ADMINISTERED
[2020-02-07] MEDS: INSULIN LISPRO SLIDING SCALE 100 UNITS/ML VIAL SUBQ PRN (15:46)
--- NOTE | 2020-02-07 16:00 | NUR ---
PT UNABLE TO PROVIDE URINE AT THIS TIME
--- NOTE | 2020-02-07 18:00 | NUR ---
Patient will be admitted to care of [facility]. Admited to TELE. Will go to room 114. Belongings list completed. Report to WILLIE DEAN.
[2020-02-07 18:03] VITALS: BP 133/62
--- NOTE | 2020-02-07 18:39 | NUR ---
received almost 6 pm. oriented to unit, call light and plan of care. verbalized understanding.
--- NOTE | 2020-02-07 19:30 | NUR ---
RECEIVED BEDSIDE ENDORSEMENT FROM AM SHIFT RN. AOX3. PATIENT IS NOT IN DISTRESS, RESPIRATION EVEN AND UNLABORED, NO SOB, DENIES PAIN, LOW BED IN PLACE, DROPLET PRECAUTION OBSERVED AT ALL TIMES. PLAN OF CARE DISCUSSED. CALL LIGHT WITHIN REACH.
--- NOTE | 2020-02-07 20:03 | NUR ---
HEPARIN GIVEN ORDERED, TOLERATED WELL. MED EDUCATION PROVIDED.
--- NOTE | 2020-02-07 22:33 | NUR ---
DIALYSIS WAS FINISHED WITH 2,600 L OUT. PATIENT TOLERATED WELL.
[2020-02-08] VITALS: BP 126/56
--- NOTE | 2020-02-08 | NUR ---
V/S TAKEN AND RECORDED. V/S WNL.
--- NOTE | 2020-02-08 02:02 | NUR ---
PATIENT SLEEPING, RESPIRATION EVEN AND UNLABORED.
[2020-02-08 04:00] VITALS: BP 148/59
[2020-02-08] MEDS: LEVOTHYROXINE 0.075 MG TAB PO SCH (05:47)
--- NOTE | 2020-02-08 05:47 | NUR ---
DUE MEDS GIVEN ORDERED, TOLERATED WELL, KEPT CLEAN, DRY AND COMFORTABLE.
[2020-02-08 07:08] LABS: BASOPHILS # (AUTO) 0.1 K/uL (0.00-0.22); BASOPHILS % (AUTO) 0.7 % (0.0-2.0); EOSINOPHILS # (AUTO) 0.2 K/uL (0-0.4); EOSINOPHILS % (AUTO) 2.6 % (0.0-4.0); HEMATOCRIT 22.5 % (36-48); HEMOGLOBIN 7.3 g/dL (12.0-16.0); LYMPHOCYTES # (AUTO) 1.7 K/uL (2.5-16.5); LYMPHOCYTES % (AUTO) 19.3 % (20.5-51.1); MEAN CORPUSCULAR HEMOGLOBIN 29 pg (27-31); MEAN CORPUSCULAR HGB CONC 32 g/dL (33-37); MEAN CORPUSCULAR VOLUME 89.4 fL (80-94); MONOCYTES # (AUTO) 0.7 K/uL (0.8-1.0); MONOCYTES % (AUTO) 7.9 % (1.7-9.3); NEUTROPHILS # (AUTO) 6.2 K/uL (1.8-7.7); NEUTROPHILS % (AUTO) 69.5 % (42.2-75.2); PLATELET COUNT (AUTO) 282 K/uL (140-450); RED BLOOD CELL COUNT(AUTO) 2.52 MIL/uL (4.20-5.40); RED CELL DISTRIBUTION WIDTH 16.1 % (11.6-13.7)
--- NOTE | 2020-02-08 07:15 | NUR ---
PATIENT IS IN STABLE CONDITION. ENDORSED TO AM SHIFT RN FOR CONTINUITY OF CARE.
[2020-02-08 07:39] LABS: ALBUMIN 2.2 g/dL (3.4-5.0); ANION GAP 18.4 (8-16); CARBON DIOXIDE 26.5 mmol/L (21-32); POTASSIUM 3.9 mmol/L (3.5-5.1); TOTAL BILIRUBIN 0.3 mg/dL (0.0-1.0)
[2020-02-08] MEDS: INSULIN LISPRO SLIDING SCALE 100 UNITS/ML VIAL SUBQ PRN ×4 (07:52→20:45)
[2020-02-08 08:00] VITALS: BP 127/54
[2020-02-08] MEDS: FUROSEMIDE 40 MG/4 ML VIAL IVP SCH ×2 (08:02→17:10)
[2020-02-08 08:08] LABS: CREATININE 8.1 mg/dL (0.6-1.3)
--- NOTE | 2020-02-08 09:03 | NUR ---
PATIENT HAS BEEN SCREENED AND CATEGORIZED MODERATE NUTRITION RISK. PATIENT WILL BE SEEN WITHIN 3-5 DAYS OF ADMISSION. 02/10/20 02/12/[address]
[2020-02-08] MEDS: ASPIRIN 81 MG TAB.CHEW PO SCH (09:09)
[2020-02-08] MEDS: PARoxetine 20 MG TAB PO SCH (09:09)
[2020-02-08] MEDS: GABAPENTIN 300 MG CAP PO SCH (09:09)
--- NOTE | 2020-02-08 11:55 | NUR ---
MERCHANT TAILOR NOTE: Patient's Orientation Unable To Assess Information Provided By JOSE GUADALUPE MARROQUIN - SISTER Comments SW WAS UNABLE TO MEET PATIENT AT BEDSIDE DUE TO MEDICAL CONDITION. Schedule Supervisor, Realtionship and Phone Number JOSE GUADALUPE MARROQUIN SISTER [phone] Healthcare Power of Financial Service Representative No Does Patient Have a POLST No Identifying Problems No Social Work Triggers Is A Social Work Consult Needed No Mandate Report Filed No Explanation Of Identifying Problems PATIENT IS A 59-YEAR-OLD FEMALE ADMITTED FOR FLUID OVERLOAD. PATIENT HAS PMHX OF DM, GERD, AND HYPOTHYROIDISM. Admitted From Home Pre-Admission Level Of Functioning Status Total Care Prior Resources/Services Used In Last 12 Months IHSS Prior Resources/Service Comments PER ABDON, PATIENT RECEIVES 103 HOURS MONTHLY FOR IHSS. Prior DME Bedside Commode Shower Chair/Tub Bench Walker Wheelchair Living Situation Apartment Lives With Family Patient Had Caregiver Yes Name and Contact Number Of Designated Caregiver ABDON DAMON - [phone] Home Support CG/Fam Able To Meet Need Financial Issues No Known Financial Issue Referral To The Financial Counselor Needed No Factors/Needs No D/C Needs Identified Pt/Rep Participated In Discharge Plan Yes Patient/Family Agress With Discharge Plan Yes Discharge Plan Comments TENTATIVE DISCHARGE PLAN IS FOR PATIENT TO RETURN HOME. DC Plan Status Initiated
[2020-02-08 12:00] VITALS: BP 134/55
--- NOTE | 2020-02-08 15:35 | NUR ---
DC PLANNIN YRS OLD FEMALE PATIENT WAS ADMITTED FROM HOME WITH A DX OF FLUID OVERLOAD. PATIENT HAS A HISTORY OF ESRD ON HD , HYPOTHYROIDISM . CXR SHOWED PNEUMONIA .STARTED ON LEVAQUIN IV ABX , COVID TEST NEGATIVE. BLOOD AND URINE CULTURE PENDING . CONSULTED WITH SENIOR PRODUCT DESIGNER DC PLAN TO GO HOME WHEN STABLE CM TO FOLLOW.
[2020-02-08 16:09] VITALS: BP 130/54
[2020-02-08] MEDS: guaiFENesin/CODEINE 100/10MG 5 ML UDC PO PRN (17:44)
--- NOTE | 2020-02-08 18:42 | NUR ---
PATIENT CLEARED FOR COVID, DROPLET ISOLATION DISCONTINUED, MADE AWARE OF SCHEDULED DH FOR TOMORROW. PATIENT SISTER JOSE GUADALUPE AND PATIENT CAREGIVER RICARDO WAS UPDATED ON PATIENT STATUS.
--- NOTE | 2020-02-08 19:25 | NUR ---
RECEIVED BEDSIDE ENDORSEMENT FROM AM SHIFT RN. PATIENT IS AOX3. RESPIRATION EVEN AND UNLABORED. NO SOB. ON RA. DENIES PAIN. ASSESSMENT DONE. LEFT LOWER ARM AV FISTULA NOTED FOR HD ACCESS. PLAN OF CARE DISCUSSED. CALL LIGHT WITHIN REACH.
[2020-02-08 20:00] VITALS: BP 132/57
--- NOTE | 2020-02-08 20:34 | NUR ---
SPOKE TO DR. HORVATH ABOUT ACCU CHECK ORDER, HE SAID HE WILL PUT IT IN, NOTED.
[2020-02-08] MEDS ORDERED: DEXTROSE 50% 50 ML SYR IVP PRN (20:35)
[2020-02-08] MEDS: BLOOD GLUCOSE MONITORING 1 DEV DEV FS SCH (21:20)
--- NOTE | 2020-02-08 21:20 | NUR ---
DUE MEDS GIVEN ORDERED, TOLERATED WELL, MED EDUCATION PROVIDED.
[2020-02-09] VITALS: BP 140/66
--- NOTE | 2020-02-09 | NUR ---
V/S TAKEN, KEPT CLEAN, DRY AND COMFORTABLE.
[2020-02-09] MEDS: guaiFENesin/CODEINE 100/10MG 5 ML UDC PO PRN ×2 (01:58→20:51)
--- NOTE | 2020-02-09 01:58 | NUR ---
NOTED W/ COUGH AND ASKED FOR COUGH MEDICINE. ROBITUSSIN PO GIVEN ORDERED, TOLERATED WELL.
[2020-02-09 04:00] VITALS: BP 131/47
--- NOTE | 2020-02-09 04:40 | NUR ---
CHECKED PATIENT, KEPT CLEAN, DRY AND COMFORTABLE, ALL NEEDS ATTENDED. CALL LIGHT WITHIN REACH.
[2020-02-09] MEDS: LEVOTHYROXINE 0.075 MG TAB PO SCH (05:33)
[2020-02-09] MEDS: BLOOD GLUCOSE MONITORING 1 DEV DEV FS SCH ×3 (06:30→17:18)
--- NOTE | 2020-02-09 06:30 | NUR ---
BLOOD SUGAR CHECKED 149, NO COVERAGE NEEDED, NOT IN ANY ACUTE DISTRESS, DENIES PAIN, AFEBRILE THE WHOLE SHIFT, ALL NEEDS ATTENDED, KEPT COMFORTABLE.
--- NOTE | 2020-02-09 07:00 | NUR ---
PATIENT IS IN STABLE CONDITION, BEDSIDE ENDORSEMENT GIVEN TO AM SHIFT RN FOR CONTINUITY OF CARE.
--- NOTE | 2020-02-09 07:25 | NUR ---
RECEIVED PATIENT FROM NIGHT NURSE. PATIENT IS IN BED SLEEPING. CHEST RISING NOTED. RESP EVEN AND UNLABORED ON ROOM AIR. SAFETY MEASURES IN PLACE. CALL LIGHT WITHIN REACH. IV ACCESS TO RIGHT HAND NOTED. WILL CONTINUE TO MONITOR.
[2020-02-09 08:00] VITALS: BP 142/55
[2020-02-09 08:20] LABS: BASOPHILS # (AUTO) 0.1 K/uL (0.00-0.22); BASOPHILS % (AUTO) 1.2 % (0.0-2.0); EOSINOPHILS # (AUTO) 0.3 K/uL (0-0.4); EOSINOPHILS % (AUTO) 3.4 % (0.0-4.0); HEMATOCRIT 23.7 % (36-48); HEMOGLOBIN 7.5 g/dL (12.0-16.0); LYMPHOCYTES # (AUTO) 2.1 K/uL (2.5-16.5); LYMPHOCYTES % (AUTO) 20.9 % (20.5-51.1); MEAN CORPUSCULAR HEMOGLOBIN 28 pg (27-31); MEAN CORPUSCULAR HGB CONC 32 g/dL (33-37); MEAN CORPUSCULAR VOLUME 89.1 fL (80-94); MONOCYTES # (AUTO) 0.8 K/uL (0.8-1.0); MONOCYTES % (AUTO) 7.7 % (1.7-9.3); NEUTROPHILS # (AUTO) 6.7 K/uL (1.8-7.7); NEUTROPHILS % (AUTO) 66.8 % (42.2-75.2); PLATELET COUNT (AUTO) 337 K/uL (140-450); RED BLOOD CELL COUNT(AUTO) 2.66 MIL/uL (4.20-5.40); RED CELL DISTRIBUTION WIDTH 15.8 % (11.6-13.7); WHITE BLOOD COUNT (AUTO) 10.1 K/uL (4.8-10.8)
[2020-02-09 08:29] LABS: ANION GAP 22.5 (8-16); CARBON DIOXIDE 23.2 mmol/L (21-32); POTASSIUM 4.7 mmol/L (3.5-5.1)
[2020-02-09 08:32] LABS: CREATININE 10.2 mg/dL (0.6-1.3)
[2020-02-09] MEDS ORDERED: levoFLOXacin 250 MG TAB PO SCH (09:00)
[2020-02-09] MEDS ORDERED: EPOETIN ALFA 10,000 UNITS/ML VIAL SUBQ SCH (09:00)
[2020-02-09] MEDS ORDERED: ROBAC PO (09:09)
[2020-02-09] MEDS ORDERED: LEVO750T2 PO (09:09)
[2020-02-09] MEDS: PARoxetine 20 MG TAB PO SCH (09:57)
[2020-02-09] MEDS: FUROSEMIDE 40 MG/4 ML VIAL IVP SCH ×2 (09:57→17:18)
[2020-02-09] MEDS: ASPIRIN 81 MG TAB.CHEW PO SCH (09:57)
[2020-02-09] MEDS: GABAPENTIN 300 MG CAP PO SCH (09:57)
--- NOTE | 2020-02-09 10:11 | NUR ---
MORNING ROUTINE MEDICATIONS GIVEN ORDERED. PATIENT TOLERATED WELL. PROCRIT HELD UNTIL AFTER DIALYSIS. PATIENT IS AWAKE, ALERT, ORIENTED X4. IV ACCESS IS PATENT AND INTACT. LLA AV FISTULA NOTED. PATIENT AMBULATING WITH STEADY GAIT. DENIES OF PAIN AT THIS TIME. SKIN IS WARM TO TOUCH. NO NOTED DISTRESS. VITALS WNL. CALL LIGHT WITHIN REACH. WILL CONTINUE TO MONITOR.
[2020-02-09 12:00] VITALS: BP 136/51
--- NOTE | 2020-02-09 12:05 | NUR ---
PATIENT RESTING COMFORTABLY IN BED. BLOOD GLUCOSE 240. INSULIN COVERAGE PROVIDED PER SLIDING SCALE. RESP EVEN AND UNLABORED ON ROOM AIR. DENIES OF PAIN AT THIS TIME. WILL CONTINUE TO MONITOR.
[2020-02-09] MEDS: INSULIN LISPRO SLIDING SCALE 100 UNITS/ML VIAL SUBQ PRN ×2 (12:26→17:15)
[2020-02-09 16:00] VITALS: BP 142/64
--- NOTE | 2020-02-09 17:28 | NUR ---
HD DONE. 2.2 L DRAINED. PROCRIT GIVEN PER DIALYSIS NURSE. PATIENT IS COMFORTABLE. ABLE TO MAKE NEEDS KNOWN. VITALS WNL. RESP EVEN AND UNLABORED ON ROOM AIR. WILL CONTINUE TO MONITOR.
--- NOTE | 2020-02-09 19:30 | NUR ---
ENDORSED PATIENT TO NIGHT NURSE. PATIENT IN STABLE CONDITION.
--- NOTE | 2020-02-09 19:31 | NUR ---
RECD. SITTING ON BED, AWAKE, A/OX4. RESPIRATION EVEN AND UNLABORED. 02 SAT AT ROOM AIR - 97%. IV SALINE LOCK AT THE RIGHT HAND G20, PATENT AND INTACT. AWARE OF DISCHARGE TONIGHT. ADDITIONAL DISCHARGE INSTRUCTIONS GIVEN. VERBALIZED UNDERSTANDING. INSTRUCTED TO WAIT, WILL PREPARE DISCHARGE PAPERS FOR HER TO SIGN. DENIES PAIN 0/10.
[2020-02-09 20:10] VITALS: BP 110/49
--- NOTE | 2020-02-09 20:30 | NUR ---
IV SALINE LOCK TAKEN OUT. OXYGEN PLANT OPERATOR ASSISTED TO CHANGE GOWN INTO HOME CLOTHES. BELONGINGS ALL PREPARED TO BE TAKEN HOME.
--- NOTE | 2020-02-09 21:00 | NUR ---
SIGNED ALL DISCHARGE PAPERS AND TAKE ALL BELONGINGS.
--- NOTE | 2020-02-09 21:05 | NUR ---
TAKEN TO HOSPITAL LOBBY PARKING IN STABLE CONDITION VIA W/C WITH SPIRAL WEAVER FOR DISCHARGE TO HOME TO GO WITH SISTER IN A PRIVATE VEHICLE.
== END 2020-02-09 21:05 | disposition home or self-care (01) | DRG 720 ==
LOC: MED 10:17 → MTU 13:56
PROVIDERS: ADMIT Internal Medicine; ATTEND Internal Medicine
PROC: 5A1D70Z Performance of Urinary Filtration, Intermittent, Less than 6 Hours Per Day (ICD-10-PCS; principal; 2020-02-07)
PROC: 5A1D70Z Performance of Urinary Filtration, Intermittent, Less than 6 Hours Per Day (ICD-10-PCS; 2020-02-09)
DX: A41.9 Sepsis, unspecified organism (principal); E87.70 Fluid overload, unspecified; I12.0 Hypertensive chronic kidney disease with stage 5 chronic kidney disease or end stage renal disease; N18.6 End stage renal disease; E11.40 Type 2 diabetes mellitus with diabetic neuropathy, unspecified; E11.22 Type 2 diabetes mellitus with diabetic chronic kidney disease; K21.9 Gastro-esophageal reflux disease without esophagitis; E43 Unspecified severe protein-calorie malnutrition; E87.5 Hyperkalemia; D63.8 Anemia in other chronic diseases classified elsewhere; J96.01 Acute respiratory failure with hypoxia; E03.9 Hypothyroidism, unspecified; J81.1 Chronic pulmonary edema; Z88.2 Allergy status to sulfonamides; Z99.2 Dependence on renal dialysis; Z88.8 Allergy status to other drugs, medicaments and biological substances; Z68.33 Body mass index [BMI] 33.0-33.9, adult; Z03.818 Encounter for observation for suspected exposure to other biological agents ruled out
CPT/HCPCS: 36415; 71045; 80048; 80053; 82948; 83880; 85025; 87040; 87081; 87804; 93005; 96361; 96365; 96375; 99285; J0610; J0885; J1644; J1815; J1940; J1956; J7030; Q0092; U0003-CS

== ENCOUNTER 2020-02-13 17:50 | Emergency (ER) | payer OTHER, SELFPAY ==
[~2020-02-13] VITALS: Ht 162.6 cm; Wt 49.9 kg
[~2020-02-13 17:50] MED LIST changes: +AMLO10TA PO; +ASPI-1822 PO; -ASPI81CT PO; -ERGO2000 PO; -FURO-570 PO; +FURO-572 PO; -GABA100C PO; +GABA300C PO; -IBUP-2213 PO; +LEVO750T2 PO; -LORA1T PO; +OMEP20TC22 PO; -PARO40TA1 PO; +PAX20 PO; -PRAV40TA1 PO; +ROBAC PO; +SEVE800T6 PO; +SYN.075 PO; -VAS2.5 PO; +VIT D2 PO
--- NOTE | 2020-02-13 17:58 | NUR ---
PATIENT BIBA TO ER BED 4 AT THIS TIME.
[2020-02-13 17:59] VITALS: BP 110/68
[2020-02-13] MEDS ORDERED: FAMO-90 PO (18:12)
[2020-02-13] MEDS ORDERED: LOSA100T1 PO (18:12)
[2020-02-13] MEDS ORDERED: ERGO500028 PO (18:12)
--- NOTE | 2020-02-13 18:28 | NUR ---
Patient being evaluated by DR DOTSON at bedside.
[2020-02-13] MEDS ORDERED: ONDANSETRON 4 MG/2 ML VIAL IVP ONE (18:35)
[2020-02-13] MEDS ORDERED: fentaNYL citrate 0.05 MG/ML VIAL IVP ONE (18:35)
--- NOTE | 2020-02-13 18:50 | NUR ---
JARET FROM DIALYSIS CENTER AFTER COMPLETING 30 MINS OF DIALYSIS AND FEELING LETHARGIC AND WEAK W/ HEADACHE. PT A &0 X4, ANSWERING QUESTIONS APPROPRIATELY BUT SLOWLY. FSBS 204. LEFT FOREARM SHUNT FOR DIALYSIS -. COVID TESTED NEGATIVE 02/07/20. LAST DIALYSIS FINISHED TODAY. VSS. PT PLACED ON BEDSIDE PIPE BOWLS PAINT TRIMMER, BED IN LOW POSITION, SIDE RAIL UP X1.
[2020-02-13 18:59] LABS: BASOPHILS % (AUTO) 0.3 % (0.0-2.0); EOSINOPHILS # (AUTO) 0.4 K/uL (0-0.4); EOSINOPHILS % (AUTO) 3.9 % (0.0-4.0); HEMOGLOBIN 8.5 g/dL (12.0-16.0); LYMPHOCYTES # (AUTO) 1.8 K/uL (2.5-16.5); MEAN CORPUSCULAR HEMOGLOBIN 28 pg (27-31); MEAN CORPUSCULAR HGB CONC 31 g/dL (33-37); MONOCYTES # (AUTO) 0.8 K/uL (0.8-1.0); MONOCYTES % (AUTO) 8.9 % (1.7-9.3); NEUTROPHILS # (AUTO) 6.1 K/uL (1.8-7.7); NEUTROPHILS % (AUTO) 66.9 % (42.2-75.2); PLATELET COUNT (AUTO) 403 K/uL (140-450); WHITE BLOOD COUNT (AUTO) 9.1 K/uL (4.8-10.8)
[2020-02-13 19:16] LABS: ALBUMIN 2.8 g/dL (3.4-5.0); ANION GAP 15.1 (8-16); CARBON DIOXIDE 30.2 mmol/L (21-32); POTASSIUM 4.3 mmol/L (3.5-5.1); TOTAL BILIRUBIN 0.2 mg/dL (0.0-1.0)
--- NOTE | 2020-02-13 19:19 | NUR ---
RECEIVED REPORT FROM DIANNE PARKS FOR CONTINUITY OF CARE.
[2020-02-13 19:26] LABS: CREATINE KINASE MB 0.5 ng/mL (0-3.6)
[2020-02-13 19:32] LABS: CREATININE 5.6 mg/dL (0.6-1.3)
--- NOTE | 2020-02-13 19:32 | NUR ---
YAN FROM LAB CALLED. CRITICAL LAB VALUE: CREATININE 5.6 FLOR SINGLETARY MADE AWARE
--- NOTE | 2020-02-13 19:40 | NUR ---
PT RESTING IN BED, CHEST RISE AND FALL NOTED. NO NEW CONCERNS AT THIS TIME. ALL NEEDS MET. PT ATTACHED TO PHYSICAL GEOGRAPHER AND PULSE OXIMETRY. BED LOCKED AND IN LOWEST POSITION. SIDE RAIL UP X2. WILL CONTINUE TO MONITOR.
[2020-02-13] MEDS ORDERED: INSULIN REGULAR, HUMAN 100 UNIT/ML VIAL SUBQ ONE (19:50)
[2020-02-13 21:19] VITALS: BP 134/49
--- NOTE | 2020-02-13 21:20 | NUR ---
Patient discharged with v/s stable. Written and verbal after care instructions given and explained. Patient verbalized understanding. Wheel Chair Assisted with to car. All questions addressed prior to discharge. Advised to follow up with PMD.
== END 2020-02-13 21:19 | disposition home or self-care (01) ==
LOC: MED 17:50
DX: E11.65 Type 2 diabetes mellitus with hyperglycemia (principal); E11.22 Type 2 diabetes mellitus with diabetic chronic kidney disease; I13.2 Hypertensive heart and chronic kidney disease with heart failure and with stage 5 chronic kidney disease, or end stage renal disease; N18.6 End stage renal disease; I50.9 Heart failure, unspecified; R53.1 Weakness; D64.9 Anemia, unspecified; K21.9 Gastro-esophageal reflux disease without esophagitis; Z99.2 Dependence on renal dialysis; Z88.1 Allergy status to other antibiotic agents; Z88.2 Allergy status to sulfonamides; Z88.8 Allergy status to other drugs, medicaments and biological substances; Z79.82 Long term (current) use of aspirin; Z79.899 Other long term (current) drug therapy; Z98.890 Other specified postprocedural states
CPT/HCPCS: 36415; 71045; 80053; 82550; 82553; 84484; 85025; 93005; 96372; 96374; 96375; 99285; J1815; J2405; J3010

== ENCOUNTER 2020-06-11 14:29 | Inpatient (IN) | payer OTHER, SELFPAY ==
[~2020-06-11] VITALS: Ht 170.2 cm; Wt 81.6 kg
[~2020-06-11 14:29] MED LIST changes: +ERGO500028 PO; +FAMO-90 PO; -LEVO750T2 PO; +LOSA100T1 PO; -ROBAC PO; -SYN.075 PO; -VIT D2 PO
[2020-06-11] MEDS ORDERED: HYDROcodone/APAP 5/325 MG 1 TAB TAB PO STA (14:33)
[2020-06-11 14:53] VITALS: BP 132/58
--- NOTE | 2020-06-11 14:55 | NUR ---
PT PLACED IN W/C AND PLACED IN ER LOBBY TO WAIT FOR MSE AND AVAILABLE BED.
[2020-06-11 15:07] LABS: BASOPHILS # (AUTO) 0.1 K/uL (0.00-0.22); BASOPHILS % (AUTO) 0.6 % (0.0-2.0); EOSINOPHILS # (AUTO) 0.2 K/uL (0-0.4); EOSINOPHILS % (AUTO) 2.3 % (0.0-4.0); HEMATOCRIT 31.9 % (36-48); HEMOGLOBIN 10.3 g/dL (12.0-16.0); LYMPHOCYTES # (AUTO) 0.8 K/uL (2.5-16.5); LYMPHOCYTES % (AUTO) 8.2 % (20.5-51.1); MEAN CORPUSCULAR HEMOGLOBIN 28 pg (27-31); MEAN CORPUSCULAR HGB CONC 32 g/dL (33-37); MEAN CORPUSCULAR VOLUME 87.6 fL (80-94); MONOCYTES # (AUTO) 0.5 K/uL (0.8-1.0); MONOCYTES % (AUTO) 4.9 % (1.7-9.3); NEUTROPHILS # (AUTO) 8.5 K/uL (1.8-7.7); PLATELET COUNT (AUTO) 220 K/uL (140-450); RED BLOOD CELL COUNT(AUTO) 3.64 MIL/uL (4.20-5.40); RED CELL DISTRIBUTION WIDTH 16.7 % (11.6-13.7); WHITE BLOOD COUNT (AUTO) 10.1 K/uL (4.8-10.8)
[2020-06-11 15:27] LABS: PROTHROMBIN TIME 9.5 secs (10.8-13.4)
[2020-06-11 15:30] LABS: ANION GAP 22.2 (8-16); CARBON DIOXIDE 23.8 mmol/L (21-32); TOTAL BILIRUBIN 0.4 mg/dL (0.0-1.0)
--- NOTE | 2020-06-11 15:53 | NUR ---
RECEIVED CRITICAL FROM LAB K-6.0 GLUC 413 BUN-96 CREAT 10.8 ERMD MADE AWARE.
[2020-06-11 15:54] LABS: CREATININE 10.8 mg/dL (0.6-1.3)
[2020-06-11] MEDS ORDERED: SODIUM ZIRCONIUM CYCLOSILICATE 10 GM POWD.PACK PO ONE (16:00)
[2020-06-11] MEDS ORDERED: INSULIN REGULAR, HUMAN 100 UNIT/ML VIAL IVP ONE (16:00)
[2020-06-11] MEDS ORDERED: HYDROcodone/APAP 5/325 MG 1 TAB TAB ONE (18:15)
[2020-06-11] MEDS ORDERED: SODIUM ZIRCONIUM CYCLOSILICATE 10 GM POWD.PACK ONE (18:16)
[2020-06-11] MEDS ORDERED: ONDANSETRON 4 MG/2 ML VIAL IVP PRN (19:35)
[2020-06-11] MEDS ORDERED: ACETAMINOPHEN 325 MG TAB PO PRN (19:35)
--- NOTE | 2020-06-11 20:36 | NUR ---
EKG PERFORMED IN PHLEBOTOMY CHAIR. EKG READS SINUS RHYTHM @ 78
--- NOTE | 2020-06-12 07:00 | NUR ---
JARET FROM DIALYSIS CENTER YESTERDAY, C/O LEFT HIP AND LEG PAIN S/P FALL 2 WEEKS AGO. DID NOT GET TX TODAY D/T UNABLE TO SIT DURING DIALYSIS HX DM, HTN, ESRD, LEFT ARM SHUNT
--- NOTE | 2020-06-12 07:54 | NUR ---
C/O L HIP &LEG PAIN 810 AT THIS TIME. VSS .
--- NOTE | 2020-06-12 07:55 | NUR ---
FOOD TRAY PROVIDED FOR PT WITH STEROFORM AT THIS TIME.
--- NOTE | 2020-06-12 08:16 | NUR ---
LAB AT [facility].
[2020-06-12] MEDS ORDERED: ENOXAPARIN 40 MG/0.4 ML SYR SUBQ SCH (09:00)
[2020-06-12 09:13] LABS: BASOPHILS # (AUTO) 0.1 K/uL (0.00-0.22); BASOPHILS % (AUTO) 0.7 % (0.0-2.0); EOSINOPHILS # (AUTO) 0.2 K/uL (0-0.4); EOSINOPHILS % (AUTO) 2.4 % (0.0-4.0); HEMATOCRIT 32.8 % (36-48); HEMOGLOBIN 10.6 g/dL (12.0-16.0); LYMPHOCYTES # (AUTO) 1.4 K/uL (2.5-16.5); LYMPHOCYTES % (AUTO) 14.4 % (20.5-51.1); MEAN CORPUSCULAR HEMOGLOBIN 29 pg (27-31); MEAN CORPUSCULAR HGB CONC 32 g/dL (33-37); MEAN CORPUSCULAR VOLUME 88.3 fL (80-94); MONOCYTES # (AUTO) 0.7 K/uL (0.8-1.0); MONOCYTES % (AUTO) 6.7 % (1.7-9.3); NEUTROPHILS # (AUTO) 7.3 K/uL (1.8-7.7); NEUTROPHILS % (AUTO) 75.8 % (42.2-75.2); PLATELET COUNT (AUTO) 253 K/uL (140-450); RED BLOOD CELL COUNT(AUTO) 3.71 MIL/uL (4.20-5.40); RED CELL DISTRIBUTION WIDTH 16.8 % (11.6-13.7); WHITE BLOOD COUNT (AUTO) 9.7 K/uL (4.8-10.8)
[2020-06-12 09:39] LABS: ANION GAP 24.5 (8-16); CARBON DIOXIDE 22.4 mmol/L (21-32); POTASSIUM 5.9 mmol/L (3.5-5.1)
[2020-06-12 10:20] LABS: CREATININE 11.6 mg/dL (0.6-1.3)
--- NOTE | 2020-06-12 13:27 | NUR ---
SPOKE WITH SIVLESTRE (SISTER) REGARDING PT UPDATE AND REQUESTING TO SPEAK WITH DR. SEVILLA. CONTACT #: [phone]
--- NOTE | 2020-06-12 16:04 | NUR ---
SPOKE WITH DR EVANS INQUIRING ABOUT DIALYSIS OF PATIENT
--- NOTE | 2020-06-12 16:25 | NUR ---
DC PLANNIN YRS OLD FEMALE PATIENT WAS ADMITTED FROM HOME WITH A DX OF VOLUME OVERLOAD AND LEFT HIP FRACTURE. PT HAS A HX OF ESRD ON HEMODIALYSIS DM, AND HTN. CT PELVIS SHOWED NO ACUTE EVIDENCE OF FRACTURE AND LEFT HIP JOINT EFFUSION POSSIBLE AN OCCULT NONDISPLACED FRACTURE . CONSULTED WITH SINTERING PRESS OPERATOR AND ORTHOPEDIC SURGEON. DC PLAN PER RESPONDING TO THE TREATMENT. CM TO FOLLOW Addendum: 06/15/20 at 1453 by Cheryl Potter RN DC PLANNING: SPOKE WITH DR MICHELET MADRIGAL TO DC TO SNF FOR PHYSICAL THERAPY FAXED TO [facility] AND CONTRACTED SNF. SPOKE WITH PATIENT AGREED TO GO TO SNF, ANYWHERE IN [facility] ARE OK . [facility] ARE NOT ACCEPTING PATIENT , FAXED TO [facility] . CM TO FOLLOW Addendum: 06/15/20 at 1621 by Cheryl Potter RN DC PLANING: CALLED [facility] LEFT A VOICE FAUSTO UNABLE TO REACH ANYONE TO CLARIFY THE CHAIR TIME AND TO NOTIFY THEM PT WILL BE DISCHARGE. CALLED [facility] SPOKE WITH SHARMIN MCCAIN THE AUTH FOR [facility] [id number] AND TRANSPORT AUTH [id number]. ARRANGED TRANSPORT WITH IE FOR DIALYSIS FROM [facility] TO [facility] , FAXED THE PAPER WORK AND WILL FOLLOW UP. NOTIFIED BERNARDO DEAN CM TO FOLLOW Addendum: 06/16/20 at 1016 by Damaris Arteaga CM DC MOLD FORMS BUILDER: SPOKE TO ANDRA AT [facility] [phone] NOTIFIED HER THAT PATIENT WILL BE DISCHARGED TO [facility] TODAY. PATIENTS CHAIR TIME IS M-W- AT 1:00 PM. PATIENTS WILL BE ABLE TO RETURN ON TUESDAY. ANDRA STATED THIS WEEK ONLY SINCE IT IS A HOLIDAY PATIENT WILL GO. M-W-S Addendum: 06/16/20 at 1122 by Damaris Arteaga CM MAYRA POTTER: SPOKE TO DIANNE WRIGHT PATIENT IS GETTING DIALYSIS RIGHT NOW. PATIENT WILL BE DISCHARGED TO [facility]. [facility] [address] [place] [address] ROOM 25-A Addendum: 06/16/20 at 1131 by Damaris Arteaga CM MAYRA ABBASINER: SET UP TRANSPORTATION WITH [facility] [phone] FOR 4:00 PM. NOTIFIED WILLIE AT [facility]. Addendum: 06/16/20 at 1133 by Damaris Arteaga CM MAYRA POTTER: NOTIFIED RN OF TRANSPORTATION
--- NOTE | 2020-06-12 16:58 | NUR ---
ALBERT SWAB DONE. WALKED TO LAB
--- NOTE | 2020-06-12 19:21 | NUR ---
REPORT GIVEN TO DIANNE ALEMAN. TRANSFER OF CARE AT THIS TIME.
--- NOTE | 2020-06-12 19:23 | NUR ---
RECEIVED REPORT FROM JAZZY DEAN
--- NOTE | 2020-06-12 19:26 | NUR ---
PT PLACED BACK ON BEDSIDE MONITOR. PT C/O L HIP PAIN 03/06, WILL MEDICATE ORDERED
[2020-06-12] MEDS: MORPHINE SULFATE 2 MG/ML SYR IVP PRN (19:32)
--- NOTE | 2020-06-12 20:18 | NUR ---
MD AT BEDSIDE SPEAKING WITH PT
--- NOTE | 2020-06-12 20:27 | NUR ---
PT CONTINUES TO HAVE L HIP PAIN 01/03.
--- NOTE | 2020-06-12 20:31 | NUR ---
CALLED [facility] REGARDING CONTINUED PAIN AFTER MS 2MG, WAITING FOR RETURN CALL
--- NOTE | 2020-06-12 21:15 | NUR ---
RECEIVED NEW ORDER FOR SEVERE PAIN FOR PT FROM MD GRANADOS. WILL MEDICATED ORDERED FOR HIP PAIN 02/03
[2020-06-12] MEDS: HYDROmorphone 1 MG/ML AMP IVP PRN (21:21)
[2020-06-12] MEDS: GABAPENTIN 300 MG CAP PO SCH (21:57)
--- NOTE | 2020-06-12 22:06 | NUR ---
PT MOVED TO BED 13
--- NOTE | 2020-06-12 23:34 | NUR ---
PT C/O 03/06 PAIN TO LEFT HIP. ADVISED PT SHE NEEDS TO WAIT ANOTHER HOUR BEFORE SHE CAN GET ANYMORE PAIN MEDS.
--- NOTE | 2020-06-12 23:49 | NUR ---
SPOKE TO PT'S SISTER, SILVESTRE, SHE WAS CALLING FOR AN UPDATE ON PTS STATUS.
[2020-06-13] MEDS: HYDROmorphone 1 MG/ML AMP IVP PRN (00:48)
[2020-06-13 01:00] VITALS: BP 136/75
--- NOTE | 2020-06-13 01:00 | NUR ---
ADMITTED THE PATIENT FROM ER VIA GURNEY. PATIENT A/A/OX3, BEDREST AT TIME. S/P FALL AT HOME. PATIENT ABLE TO MOVE ALL EXTREMITIES WITH NO PAIN. DENIES ANY PAIN, CHEST PAIN AND SOB. VSS, AFEBRILE, SATING 96% ON RA. UNABLE TO CONNECT THE PT ON TELE BECAUSE THERE IS NO TELE AVAILABLE . ORIENTED THE PT TO THE ROOM SETTING AND USE OF CALL LIGHT SYSTEM. FALL PRECAUTION IMPLEMENTED. INSTRUCTED TO CALL FOR ASSISTANCE AT ALL TIMES. CALL LIGHT WITHIN REACH. WILL CONTINUE POC AND MONITORING.
--- NOTE | 2020-06-13 01:13 | NUR ---
Patient will be admitted to care of DR SEVILLA. Admited to TELE. Will go to room 108A. Belongings list completed. Report to HELGA DEAN.
--- NOTE | 2020-06-13 02:00 | NUR ---
PATIENT ASLEEP AT THIS TIME WITH VISIBLE CHEST RISE AND FALL NOTED. NO COMPLAIN AT THIS TIME.
[2020-06-13 04:00] VITALS: BP 160/84
--- NOTE | 2020-06-13 04:15 | NUR ---
PATIENT ASKING FOR HER PAIN MEDICATION. CHECKED THE PT VITAL SINGS AND NOTED THAT THE PT IS SATING 84% TO 87% ONLY ON RA. PLACED THE PT ON 3L/NC AND HELD THE PT PAIN MEDS FOR NOW AND WILL RE CHECKED HER O2 SAT LATER.
--- NOTE | 2020-06-13 04:48 | NUR ---
PATIENT IS NOW SATING 96% ON 3L/NC.
[2020-06-13] MEDS: MORPHINE SULFATE 2 MG/ML SYR IVP PRN (04:52)
--- NOTE | 2020-06-13 06:40 | NUR ---
PATIENT STABLE. NO SIGN AND SYMPTOMS OF DISTRESS NOTED AT THIS TIME.ALL NEEDS ATTENDED.WILL ENDORSE THE PT TO THE ONCOMING RN FOR CONTINUITY OF CARE.CALL LIGHT WITHIN REACH.
--- NOTE | 2020-06-13 07:31 | NUR ---
RECEIVED ENDORSEMENT FROM TUCKPOINTER CLEANER CAULKER AWAKE, ALERT, ORIENTEDX3, BREATHING SPONTANEOUSLY WITH O2 AT 2L/MIN VIA NC, NON LABORED NOTED. WITH IV CANNULA G22 AT RT AC ON SALINE LOCK NOTED. SAFETY MEASURES IN PLACE AND CONTINUE MONITOR.
[2020-06-13 08:00] VITALS: BP 107/65
[2020-06-13] MEDS: PARoxetine 20 MG TAB PO SCH (08:19)
[2020-06-13] MEDS: FAMOTIDINE 20 MG TAB PO SCH (08:19)
[2020-06-13] MEDS: LOSARTAN 50 MG TAB PO SCH (08:20)
[2020-06-13] MEDS: GABAPENTIN 300 MG CAP PO SCH ×2 (08:28→21:42)
[2020-06-13] MEDS: amLODIPine 5 MG TAB PO SCH (08:29)
[2020-06-13] MEDS: ASPIRIN 81 MG TAB.CHEW PO SCH (08:29)
--- NOTE | 2020-06-13 09:09 | NUR ---
HEMODIALYSIS NURSE ADRY FERNANDEZ CONTACTED AND FOLLOW UP WHAT TIME THE DIALYSIS, ACCORDING TO HER NOBODY INFORM HER YESTERDAY, MADE AWARE THAT THE PATIENT FOR HD ORDERED BY CRISTINA GOMEZ. NEPHRO
--- NOTE | 2020-06-13 09:29 | NUR ---
PATIENT HAS BEEN SCREENED AND CATEGORIZED MODERATE NUTRITION RISK. PATIENT WILL BE SEEN WITHIN 3-5 DAYS OF ADMISSION. 06/14/20 06/16/[address]
[2020-06-13 12:00] VITALS: BP 133/66
--- NOTE | 2020-06-13 12:15 | NUR ---
HEMODIALYSIS STARTED AT BEDSIDE, VITALS SIGNS STABLE.
--- NOTE | 2020-06-13 14:15 | NUR ---
HEMODIALYSIS COMPLETED AND REMOVED 2L OF FLUID, VITAL SIGNS STABLE NOTED
[2020-06-13 16:00] VITALS: BP 115/68
--- NOTE | 2020-06-13 16:12 | NUR ---
APPARENTLY ASLEEP, NOT IN DISTRESS NOTED
--- NOTE | 2020-06-13 18:01 | NUR ---
P.T. NOTES P.T. EVAL COMPLETED; REFER TO EVAL FOR DETAILS; O2 SAT ROOM AIR=92%
--- NOTE | 2020-06-13 18:07 | NUR ---
AWAKE,DINNER SERVED, NOT IN DISTRESS NOTED.
--- NOTE | 2020-06-13 19:20 | NUR ---
ENDORSED TO SPIRAL SPRING WINDER IN STABLE CONDITION FOR CONTINUITY OF CARE
--- NOTE | 2020-06-13 19:21 | NUR ---
RECD. RESTING IN BED, AWAKE, A/OX3. RESPIRATION EVEN AND UNLABORED. ON 02 AT 2 LITERS VIA N/C. IV SALINE LOCK AT THE RIGHT AC G22, PATENT AND INTACT. SAFETY MEASURES ENFORCED. BED IN THE LOWEST POSITION. BED ON ALARM. DENIES PAIN 0/10.
[2020-06-13 20:00] VITALS: BP 139/63
--- NOTE | 2020-06-13 20:00 | NUR ---
02 SATURATION - 86% WHEN OFF 02 CANNULA. NO SOB NOTED.
--- NOTE | 2020-06-13 21:42 | NUR ---
DUE PO MEDICATION GIVEN. TOLERATED WELL.
--- NOTE | 2020-06-14 | NUR ---
SLEEPING COMFORTABLY IN BED.
--- NOTE | 2020-06-14 02:00 | NUR ---
OFF 02 CANNULA, PUT BACK ON PATIENT. EXPLAINED SHE NEEDED IT AND MUST BE KEEP IN PLACED.
--- NOTE | 2020-06-14 03:20 | NUR ---
RECEIVED REPORT OF PT IN STABLE CONDITION.RESP.UNLABORED.CALL LIGHT IN REACH.SL PATENT.WILL HAVE HD TONIGHT.NO DISTRESS NOTED AT THIS TIME.WILL CONT.MONITORING. Addendum: 06/15/20 at 0306 by Todd Stanton RN RECEIVED REPORT OF PT...............................................WILL CONT.MONITORING.
[2020-06-14 04:00] VITALS: BP 110/60
[2020-06-14 08:00] VITALS: BP 133/67
[2020-06-14 08:56] LABS: BASOPHILS # (AUTO) 0.1 K/uL (0.00-0.22); EOSINOPHILS # (AUTO) 0.2 K/uL (0-0.4); EOSINOPHILS % (AUTO) 2.9 % (0.0-4.0); HEMATOCRIT 26.7 % (36-48); HEMOGLOBIN 8.6 g/dL (12.0-16.0); LYMPHOCYTES # (AUTO) 1.7 K/uL (2.5-16.5); LYMPHOCYTES % (AUTO) 21.3 % (20.5-51.1); MEAN CORPUSCULAR HEMOGLOBIN 28 pg (27-31); MEAN CORPUSCULAR HGB CONC 32 g/dL (33-37); MONOCYTES # (AUTO) 0.7 K/uL (0.8-1.0); MONOCYTES % (AUTO) 8.8 % (1.7-9.3); NEUTROPHILS # (AUTO) 5.2 K/uL (1.8-7.7); PLATELET COUNT (AUTO) 169 K/uL (140-450); RED BLOOD CELL COUNT(AUTO) 3.04 MIL/uL (4.20-5.40); RED CELL DISTRIBUTION WIDTH 16.8 % (11.6-13.7); WHITE BLOOD COUNT (AUTO) 7.9 K/uL (4.8-10.8)
[2020-06-14] MEDS: ASPIRIN 81 MG TAB.CHEW PO SCH (09:12)
[2020-06-14] MEDS: amLODIPine 5 MG TAB PO SCH (09:13)
[2020-06-14] MEDS: LOSARTAN 50 MG TAB PO SCH ×2 (09:13→09:14)
[2020-06-14] MEDS: PARoxetine 20 MG TAB PO SCH (09:13)
[2020-06-14] MEDS: GABAPENTIN 300 MG CAP PO SCH ×2 (09:14→22:59)
[2020-06-14] MEDS: FAMOTIDINE 20 MG TAB PO SCH (09:14)
--- NOTE | 2020-06-14 09:14 | NUR ---
SCHEDULED MEDICATIONS GIVEN. EDUCATION PROVIDED. PATIENT VERBALIZED UNDERSTANDING. O2 SAT 92% IN RA, DENIES SOB. SITTING IN BED FINISHED 100% OF THE BREAKFAST. MILD LEFT HIP PAIN, TOLERABLE WITHOUT PAIN MEDICATIONS. NO ACUTE DISTRESS NOTED. SAFETY MEASURES IN PLACE, WILL CONTINUE TO MONITOR.
[2020-06-14 10:56] LABS: ANION GAP 23.4 (8-16); CARBON DIOXIDE 23.3 mmol/L (21-32); POTASSIUM 5.7 mmol/L (3.5-5.1)
--- NOTE | 2020-06-14 11:20 | NUR ---
PATIENT ASLEEP IN BED WITH SEMI SANON'S POSITION. NO ACUTE DISTRESS NOTED. WILL CONTINUE TO MONITOR.
--- NOTE | 2020-06-14 11:52 | NUR ---
Potassium 5.7, BUN 112, creatinine 12.1--critical values received from lab.
[2020-06-14 12:00] LABS: CREATININE 12.1 mg/dL (0.6-1.3)
[2020-06-14 16:00] VITALS: BP 111/56
--- NOTE | 2020-06-14 18:02 | NUR ---
PATIENT RESTING IN BED IN RIGHT LATERAL POSITION, NO ACUTE DISTRESS NOTED. SAFETY MEASURES IN PLACE, WILL CONTINUE TO MONITOR.
--- NOTE | 2020-06-14 20:00 | NUR ---
RECEIVED OF PT IN STABLE CONDITION.RESP.UNLABORED.SL PATENT.CALL LIGHT WITHIN REACH.WILL CONT.MONITORING.WILL HAVE HD TONIGHT.
--- NOTE | 2020-06-15 03:07 | NUR ---
HD DONE HAD 1 LIT.OUT PUT.VS STABLE DURING HD.
[2020-06-15 04:00] VITALS: BP 124/62
--- NOTE | 2020-06-15 07:02 | NUR ---
NO DISTRESS NOTED WHOLE NIGHT.SLEPT WELL.
--- NOTE | 2020-06-15 07:25 | NUR ---
RECEIVED BEDSIDE REPORT FROM SOFTWARE INTEGRATION DEVELOPER NURSE. PATIENT IS RESTING IN BED, AWAKE, A/OX3. RESPIRATION EVEN AND UNLABORED. ON 02 AT 2 LITERS VIA N/C. IV SALINE LOCK AT THE RIGHT AC 22G, PATENT AND INTACT. SAFETY MEASURES ENFORCED. BED IN THE LOWEST POSITION. BED ON ALARM. CALL LIGHT WITHIN REACH. WILL CONTINUE TO MONITOR.
--- NOTE | 2020-06-15 07:40 | NUR ---
ENDORSED TO SHIFT NURSE FOR CONTINUITY OF CARE. Addendum: 06/15/20 at 2021 by You Pantoja RN RN WRONG TIME OF ENDORSEMENT. 1939
[2020-06-15] MEDS: amLODIPine 5 MG TAB PO SCH (08:49)
[2020-06-15] MEDS: FAMOTIDINE 20 MG TAB PO SCH (08:49)
[2020-06-15] MEDS: ASPIRIN 81 MG TAB.CHEW PO SCH (08:51)
[2020-06-15] MEDS: PARoxetine 20 MG TAB PO SCH (08:51)
[2020-06-15] MEDS: GABAPENTIN 300 MG CAP PO SCH ×2 (08:52→20:32)
[2020-06-15] MEDS: LOSARTAN 50 MG TAB PO SCH (08:54)
--- NOTE | 2020-06-15 08:55 | NUR ---
ALL SCHEDULED MEDS GIVEN. PT IS STABLE. NO DISTRESS NOTED. WILL CONTINUE TO MONITOR.
--- NOTE | 2020-06-15 10:10 | NUR ---
PATIENT TRANSFERRED TO ROOM 123A. PT IS STABLE. DENIES PAIN AND NO DISTRESS NOTED. WILL CONTINUE TO MONITOR.
--- NOTE | 2020-06-15 12:30 | NUR ---
06/15/20 RD INITIAL ASSESSMENT COMPLETED. PLEASE REFER TO NUTRITION ASSESSMENT UNDER CARE ACTIVITY FOR ESTIMATED NUTRITIONAL NEEDS. RD RECOMMENDATIONS: 1. RECOMMEND CHANGE DIET TO 60GM CCHO 2GM NA DIET; SUFFICIENT TO MEET ESTIMATED NUTRITIONAL NEEDS / APPROPRIATE FOR PT MEDICAL CONDITION & HISTORY 2. F/U 3-5 DAYS; MODERATE RISK ANA LAURA EDWARDS MBA, RD
--- NOTE | 2020-06-15 14:00 | NUR ---
CHECKED ON PATIENT. PATIENT IS ASLEEP IN BED. NO RESPIRATORY DISTRESS NOTED. WILL CONTINUE TO MONITOR.
[2020-06-15 16:00] VITALS: BP 124/57
[2020-06-15 16:01] LABS: BASOPHILS # (AUTO) 0.1 K/uL (0.00-0.22); BASOPHILS % (AUTO) 0.8 % (0.0-2.0); EOSINOPHILS # (AUTO) 0.2 K/uL (0-0.4); EOSINOPHILS % (AUTO) 2.9 % (0.0-4.0); HEMOGLOBIN 8.5 g/dL (12.0-16.0); LYMPHOCYTES # (AUTO) 0.8 K/uL (2.5-16.5); LYMPHOCYTES % (AUTO) 11.8 % (20.5-51.1); MEAN CORPUSCULAR HEMOGLOBIN 29 pg (27-31); MEAN CORPUSCULAR HGB CONC 33 g/dL (33-37); MEAN CORPUSCULAR VOLUME 87.2 fL (80-94); MONOCYTES # (AUTO) 0.6 K/uL (0.8-1.0); MONOCYTES % (AUTO) 9.2 % (1.7-9.3); NEUTROPHILS # (AUTO) 5.1 K/uL (1.8-7.7); NEUTROPHILS % (AUTO) 75.3 % (42.2-75.2); PLATELET COUNT (AUTO) 192 K/uL (140-450); RED BLOOD CELL COUNT(AUTO) 2.98 MIL/uL (4.20-5.40); RED CELL DISTRIBUTION WIDTH 16.4 % (11.6-13.7); WHITE BLOOD COUNT (AUTO) 6.8 K/uL (4.8-10.8)
[2020-06-15 16:13] LABS: ALBUMIN 2.4 g/dL (3.4-5.0); ANION GAP 21.7 (8-16); CARBON DIOXIDE 23.3 mmol/L (21-32); TOTAL BILIRUBIN 0.4 mg/dL (0.0-1.0)
[2020-06-15 16:27] LABS: CREATININE 10.7 mg/dL (0.6-1.3)
--- NOTE | 2020-06-15 16:30 | NUR ---
SPOKE TO OUTPATIENT PHYSICAL THERAPIST. SHE'S PLANNING TO DISCHARGE PATIENT TOMORROW TO [facility].
--- NOTE | 2020-06-15 19:30 | NUR ---
RECEIVED BEDSIDE REPORT FROM DAY SHIFT NURSE. PATIENT IS AWAKE, ALERT, AND COOPERATIVE. RESPIRATION EVEN UNLABORED ON ROOM AIR. NO DISTRESS NOTED. SKIN IS WARM AND DRY. IV PATENT AND INTACT. PLAN OF CARE WAS DISCUSSED. ALL SAFETY MEASURES IN PLACE. BED IS AT LOW POSITION. CALL LIGHT WITHIN REACH. WILL CONTINUE TO MONITOR.
--- NOTE | 2020-06-15 19:40 | NUR ---
ENDORSED TO PM SHIFT NURSE FOR CONTINUITY OF CARE.
--- NOTE | 2020-06-15 20:30 | NUR ---
ALL SCHEDULED MEDS WERE GIVEN PER ORDER. NO ASE NOTED. WILL CONTINUE TO MONITOR
[2020-06-15] MEDS: MORPHINE SULFATE 2 MG/ML SYR IVP PRN (20:57)
--- NOTE | 2020-06-15 20:57 | NUR ---
PATIENT COMPLAINED OF LEG PAIN 6/10. PRN PAIN MEDS ADMINISTERED PER ORDER. WILL CONTINUE TO MONITOR
--- NOTE | 2020-06-15 21:40 | NUR ---
CHECKED ON PATIENT FOR PAIN REASSESSMENT. PATIENT IS SLEEPING, RESPIRATION EVEN UNLABORED ON ROOM AIR. NO DISTRESS NOTED. WILL CONTINUE TO MONITOR.
--- NOTE | 2020-06-16 01:30 | NUR ---
CHECKED ON PATIENT. PATIENT SLEEPING RESPIRATION EVEN UNLABORED ON ROOM AIR. NO DISTRESS NOTED. WILL CONTINUE TO MONITOR
--- NOTE | 2020-06-16 03:02 | NUR ---
MADE ROUNDS. PATIENT SLEEPING RESPIRATION EVEN UNLABORED ON ROOM AIR. NO DISTRESS NOTED. WILL CONTINUE TO MONITOR.
--- NOTE | 2020-06-16 07:30 | NUR ---
RECEIVED REPORT FROM NIGHT NURSE FOR CONTINUITY OF CARE, PT IS STABLE, AAOX4, PT HAS RAC 22G SALINE LOCK. SKIN INTACT, SAFETY MEASURES IN PLACE, WILL CONTINUE TO MONITOR.
[2020-06-16 08:00] VITALS: BP 129/57
--- NOTE | 2020-06-16 08:00 | NUR ---
ENDORSED PATIENT TO DAY SHIFT NURSE FOR CONTINUITY OF CARE
[2020-06-16] MEDS: GABAPENTIN 300 MG CAP PO SCH (09:08)
[2020-06-16] MEDS: ASPIRIN 81 MG TAB.CHEW PO SCH (09:09)
[2020-06-16] MEDS: LOSARTAN 50 MG TAB PO SCH (09:09)
[2020-06-16] MEDS: PARoxetine 20 MG TAB PO SCH (09:09)
[2020-06-16] MEDS: amLODIPine 5 MG TAB PO SCH (09:11)
[2020-06-16] MEDS: FAMOTIDINE 20 MG TAB PO SCH (09:11)
--- NOTE | 2020-06-16 09:14 | NUR ---
ADMINISTERED SCHEDULED MEDICATION, MEDICATION EDUCTION PROVIDED. PT TOLERATED WELL. PT IS STABLE, WILL CONTINUE TO MONITOR.
--- NOTE | 2020-06-16 11:32 | NUR ---
P.T. NOTES HOLD P.T. TX, ONGOING DIALYSIS. 06/15/20 Hgb=8.5, CREATININE=10.7
[2020-06-16 12:00] VITALS: BP 107/63
--- NOTE | 2020-06-16 13:19 | NUR ---
HD DONE AND REMOVED 1L PT IS STABLE, WILL CONTINUE TO MONITOR
[2020-06-16] MEDS ORDERED: MORP2SOL18 IVP (14:33)
--- NOTE | 2020-06-16 14:56 | NUR ---
REPORT GIVEN TO ADAMA MCCAULEY AT [facility]. WILL NOTIFY FAMILY.
[2020-06-16 16:00] VITALS: BP 125/66
== END 2020-06-16 17:08 | DRG 340 ==
LOC: MED 14:29 → MTU 19:40
PROVIDERS: ADMIT Hospitalist; ATTEND Hospitalist
PROC: 5A1D70Z Performance of Urinary Filtration, Intermittent, Less than 6 Hours Per Day (ICD-10-PCS; principal; 2020-06-12)
PROC: 5A1D70Z Performance of Urinary Filtration, Intermittent, Less than 6 Hours Per Day (ICD-10-PCS; 2020-06-14)
DX: S72.052A Unspecified fracture of head of left femur, initial encounter for closed fracture (principal); N18.6 End stage renal disease; I12.0 Hypertensive chronic kidney disease with stage 5 chronic kidney disease or end stage renal disease; E11.22 Type 2 diabetes mellitus with diabetic chronic kidney disease; E87.5 Hyperkalemia; Z20.828 Contact with and (suspected) exposure to other viral communicable diseases; Z99.2 Dependence on renal dialysis; Z88.8 Allergy status to other drugs, medicaments and biological substances; Z88.2 Allergy status to sulfonamides; Z88.1 Allergy status to other antibiotic agents; E78.5 Hyperlipidemia, unspecified; D63.1 Anemia in chronic kidney disease; W18.39XA Other fall on same level, initial encounter; Y93.89 Activity, other specified; Y92.89 Other specified places as the place of occurrence of the external cause; Y99.8 Other external cause status; E44.0 Moderate protein-calorie malnutrition
CPT/HCPCS: 36415; 70450; 71045; 72125; 72131; 72192; 73562; 73590; 73610; 80048; 80053; 83880; 84484; 85025; 85610; 86886; 86900; 86901; 90935; 93005; 97112; 99285; J1170; J1815; J2270

== ENCOUNTER 2020-09-10 15:20 | Emergency (ER) | payer OTHER, SELFPAY ==
[~2020-09-10] VITALS: Ht 172.7 cm; Wt 68.0 kg
[~2020-09-10 15:20] MED LIST changes: +MORP2SOL18 IVP
--- NOTE | 2020-09-10 15:26 | NUR ---
PT BIBA TO BED 6
[2020-09-10 15:28] VITALS: BP 124/62
--- NOTE | 2020-09-10 15:30 | NUR ---
PT IS LAYING IN BED WITH BED IN LOWEST POSITION, BRAKES LOCKED, X1 SIDERAIL UP.
[2020-09-10 15:53] LABS: BASOPHILS # (AUTO) 0.1 K/uL (0.00-0.22); BASOPHILS % (AUTO) 0.9 % (0.0-2.0); EOSINOPHILS # (AUTO) 0.1 K/uL (0-0.4); HEMATOCRIT 21.1 % (36-48); LYMPHOCYTES # (AUTO) 1.1 K/uL (2.5-16.5); LYMPHOCYTES % (AUTO) 8.6 % (20.5-51.1); MEAN CORPUSCULAR HEMOGLOBIN 29 pg (27-31); MEAN CORPUSCULAR HGB CONC 32 g/dL (33-37); MEAN CORPUSCULAR VOLUME 90.7 fL (80-94); MONOCYTES % (AUTO) 7.5 % (1.7-9.3); NEUTROPHILS # (AUTO) 10.5 K/uL (1.8-7.7); PLATELET COUNT (AUTO) 542 K/uL (140-450); RED BLOOD CELL COUNT(AUTO) 2.33 MIL/uL (4.20-5.40); RED CELL DISTRIBUTION WIDTH 15.1 % (11.6-13.7); WHITE BLOOD COUNT (AUTO) 12.8 K/uL (4.8-10.8)
--- NOTE | 2020-09-10 15:56 | NUR ---
PT TAKEN TO CT VIA S[place]A
[2020-09-10] MEDS ORDERED: MORPHINE SULFATE 4 MG/ML SYR IVP ONE (16:05)
--- NOTE | 2020-09-10 16:09 | NUR ---
DR VIZCAINO AT BEDSIDE FOR EVALUATION
--- NOTE | 2020-09-10 16:10 | NUR ---
59 Y/O FEMALE BIBA FROM [facility], PT BEGAN HAVING EXCRUTIATING LOWER ABD PAIN AND DIALYSIS WAS STOPPED, PT TAKEN TO ER. PATIENT STATES PAIN IS A 10/10 BURNING PAIN. PT STATED SHE FELL OFF OF HER BED X1 WEEK AGO DURING A BED BATH. ON ASSESSMENT, ABD IS ROUND WITH ASCITES,SOFT, WTH BRUSINING AROUND ABD. PT UNAWARE OF LAST BOWEL MOVEMENT, OVER A WEEK AGO, HYPOACTIVE BOWEL SOUNDS X4 QUAD. PT LAYING IN BED WITH EVEN AND UNLABORED RESPIRATIONS. DIALYSIS IS MWF, RIGHT UPPER SUBCLAVIAN PORT PMH: ESRD, DM, HTN,FULL ARREST 2 MONTHS AGO
[2020-09-10 16:12] LABS: HEMOGLOBIN 6.8 g/dL (12.0-16.0)
[2020-09-10] MEDS ORDERED: KETOROLAC 30 MG/ML VIAL IVP ONE (16:15)
[2020-09-10 16:26] LABS: ALBUMIN 1.8 g/dL (3.4-5.0); ANION GAP 16.7 (8-16); CARBON DIOXIDE 27.5 mmol/L (21-32); CREATININE 3.8 mg/dL (0.6-1.3); POTASSIUM 3.2 mmol/L (3.5-5.1); TOTAL BILIRUBIN 1.2 mg/dL (0.0-1.0)
--- NOTE | 2020-09-10 16:40 | NUR ---
PT RESTING IN BED WITH BED IN LOWEST POSITION, BRAKED LOCKED, X1 SIDERAIL UP. PT HAS EVEN AND UNLABORED RESPIRATIONS. WILL CONTINUE TO MONITOR
[2020-09-10] MEDS ORDERED: DOCU-299 PO (17:01)
[2020-09-10] MEDS ORDERED: MAGN1.7529 PO (17:01)
--- NOTE | 2020-09-10 18:17 | NUR ---
Patient discharged with v/s stable. Written and verbal after care instructions given and explained. Patient alert, oriented and verbalized understanding of instructions. Ambulance Transport with to home. All questions addressed prior to discharge. ID band removed. Patient advised to follow up with PMD. Rx of colace and magnesium citrate given. Patient educated on indication of medication including possible reaction and side effects. Opportunity to ask questions provided and answered.
[2020-09-10 18:18] VITALS: BP 124/62
--- NOTE | 2020-09-10 18:35 | NUR ---
PT WAITING [facility] BACK TO [facility]. ETA FOR TRANSPORT 1900. REPORT GIVEN TO PARISH DEAN.
== END 2020-09-10 18:17 ==
LOC: MED 15:20
DX: K59.00 Constipation, unspecified (principal); I11.0 Hypertensive heart disease with heart failure; I50.9 Heart failure, unspecified; E11.9 Type 2 diabetes mellitus without complications; K21.9 Gastro-esophageal reflux disease without esophagitis; Z90.710 Acquired absence of both cervix and uterus; Z79.84 Long term (current) use of oral hypoglycemic drugs; Z79.899 Other long term (current) drug therapy; Z88.1 Allergy status to other antibiotic agents; Z88.8 Allergy status to other drugs, medicaments and biological substances
CPT/HCPCS: 36415; 74176; 80053; 83690; 85025; 96374; 99284; J1885

== ENCOUNTER 2021-03-04 11:55 | Observation (INO) | payer OTHER, SELFPAY ==
[~2021-03-04] VITALS: Ht 160 cm; Wt 64.9 kg
[2021-03-04 11:55] VITALS: BP 135/65
[~2021-03-04 11:55] MED LIST changes: +DOCU-299 PO; +ERGO-30 PO; -ERGO500028 PO; +MAGN1.7529 PO
--- NOTE | 2021-03-04 11:56 | NUR ---
patient assisted from [facility] garima onto bed 5.
--- NOTE | 2021-03-04 12:00 | NUR ---
60 y/o F JARET from [facility] Dialysis c/o altered mental status and lethargy. Per EMS, staff noted patient to be more altered than usual from her A&Ox4 baseline after dialysis treatment. Patient presented A&Ox2, slow to respond after completing treatment. Upon assessment, patient presents A&Ox3 to name/year/place. Patient reports rectal pain 8/10 after having bowel movements +chronic constiptaion +nausea. Dialysis treatment MWF; dialysis access R upper chest; pt scheduled for sx tomorrow for L arm fistula. Pt presents with abd pads to lower left quadrants s/p abdominal surgery, presents diapered and states she does not make urine. EMS states pt bedbound after sx. AccuChek 101. Pt denies vomiting, diarrhea, chest pain, fever/chills, headache, dizziness. Pt into gown and surveillance monitor. BP 135/65, HR 99, RR 20, SpO2 94% on room air. Bed locked in lowest position, side rails x 2, call light in reach. PMH: ESRD, dialysis MWF, HTN, DM, anemia, hypothyroidism, Meds: levothyroxine, amlodipine, losartan, ASA 81, megestrol, atorvastatin, omperazole, dulcolax, zofran, gabapentin, famotidine, paxil, humalog 10Units SQ, humilin R sliding scale, lasix, sevelamer A: cephalexin, omperazole, pantoprazole; see list Sx: Abdominal sx
--- NOTE | 2021-03-04 12:19 | NUR ---
Dr. Ridley is evaluating patient at bedside
--- NOTE | 2021-03-04 12:20 | NUR ---
Patient transported to CT by garima accompanied by RN + threader operator.
--- NOTE | 2021-03-04 13:02 | NUR ---
LAB AT BEDSIDE
--- NOTE | 2021-03-04 13:12 | NUR ---
PT STATES SHE IS UNABLE TO URINATE ANYMORE. ERMD MADE AWARE
[2021-03-04 13:23] LABS: BASOPHILS % (AUTO) 0.7 % (0.0-2.0); EOSINOPHILS # (AUTO) 0.1 K/uL (0-0.4); EOSINOPHILS % (AUTO) 1.3 % (0.0-4.0); HEMATOCRIT 29.1 % (36-48); HEMOGLOBIN 9.4 g/dL (12.0-16.0); LYMPHOCYTES # (AUTO) 1.1 K/uL (2.5-16.5); LYMPHOCYTES % (AUTO) 18.9 % (20.5-51.1); MEAN CORPUSCULAR HEMOGLOBIN 29 pg (27-31); MEAN CORPUSCULAR HGB CONC 32 g/dL (33-37); MEAN CORPUSCULAR VOLUME 91.1 fL (80-94); MONOCYTES # (AUTO) 0.4 K/uL (0.8-1.0); NEUTROPHILS % (AUTO) 72.1 % (42.2-75.2); PLATELET COUNT (AUTO) 327 K/uL (140-450); RED CELL DISTRIBUTION WIDTH 14.9 % (11.6-13.7); WHITE BLOOD COUNT (AUTO) 5.6 K/uL (4.8-10.8)
[2021-03-04] MEDS ORDERED: ASCO500T95 PO (13:23)
[2021-03-04] MEDS ORDERED: MEGE40SU4 PO (13:23)
[2021-03-04] MEDS ORDERED: BISA-213 RC (13:23)
[2021-03-04] MEDS ORDERED: ZINC10OI TP (13:23)
[2021-03-04] MEDS ORDERED: OMEP20EC11 PO (13:23)
[2021-03-04] MEDS ORDERED: HUM SUBQ (13:23)
[2021-03-04] MEDS ORDERED: MAGN400S60 PO (13:23)
[2021-03-04] MEDS ORDERED: LEVO75CA3 PO (13:23)
[2021-03-04] MEDS ORDERED: ONDA4TAB PO (13:23)
[2021-03-04] MEDS ORDERED: ATOR10TA PO (13:23)
[2021-03-04] MEDS ORDERED: ACET-8386 PO (13:23)
[2021-03-04] MEDS ORDERED: ACET-2619 PO (13:23)
--- NOTE | 2021-03-04 13:23 | NUR ---
ALBERT COLLECTED AND HANDED TO ABY MARTINEZ
[2021-03-04 13:32] LABS: PROTHROMBIN TIME 10.6 secs (10.8-13.4)
[2021-03-04 13:35] LABS: ALBUMIN 1.8 g/dL (3.4-5.0); ANION GAP 6.3 (8-16); CREATININE 2.6 mg/dL (0.6-1.3); POTASSIUM 3.3 mmol/L (3.5-5.1); TOTAL BILIRUBIN 0.4 mg/dL (0.0-1.0)
--- NOTE | 2021-03-04 15:20 | NUR ---
Patient has eyes closed, appears to be resting comfortably in bed. Vital Signs within normal limits. Respirations even and unlabored. Chest rise is symmetrical. Will continue to monitor.
[2021-03-04] MEDS ORDERED: HYDROcodone/APAP 5/325 MG 1 TAB TAB PO PRN (16:10)
[2021-03-04] MEDS ORDERED: MAG SULF 2000 MG/WATER PREMIX 50 ML IV PRN (16:10)
[2021-03-04] MEDS ORDERED: ONDANSETRON 4 MG/2 ML VIAL IVP PRN (16:10)
[2021-03-04] MEDS ORDERED: MAGNESIUM OXIDE 400 MG TAB PO PRN (16:10)
[2021-03-04] MEDS ORDERED: KCL 20 MEQ/WATER INJ PREMIX 200 ML IV PRN (16:10)
[2021-03-04] MEDS ORDERED: POTASSIUM CHLORIDE 10 MEQ TABER PO PRN (16:10)
[2021-03-04] MEDS ORDERED: ACETAMINOPHEN 325 MG TAB PO PRN (16:10)
--- NOTE | 2021-03-04 19:30 | NUR ---
Pt report given to VI DEAN. Transfer of care at this time.
--- NOTE | 2021-03-04 19:50 | NUR ---
REPORT RECIEVED FROM DIANNE SENA FOR CONTINUITY OF CARE.
--- NOTE | 2021-03-04 19:54 | NUR ---
SISTER JOSE GUADALUPE AT BEDSIDE.
--- NOTE | 2021-03-04 20:17 | NUR ---
PT NOTED WITH BOWEL MOVEMENT. ANGELA CARE PERFORMED AND PT REPOSITIONED FOR COMFORT.
--- NOTE | 2021-03-04 20:39 | NUR ---
Patient will be admitted to care of MD LETICIA. Admited to [facility]. Will go to room 112A. Belongings list completed. Report to DIANNE BROWNE.
--- NOTE | 2021-03-04 21:35 | NUR ---
PT TAKEN TO [facility] 112A VIA [place] BY YOU CABRERA.
[2021-03-05 02:39] VITALS: BP 115/85
--- NOTE | 2021-03-05 07:18 | NUR ---
RECEIVED BEDSIDE ENDORSEMENT FROM AM SHIFT RN. PT IS IN BED ASLEEP, SAFETY MEASURES IN PLACE, ON ROOM AIR, HAS A SACRAL WOUND UNSTAGEABLE, HAS A LEFT HAND 20G AND A 22G, WILL CONTINUE TO MONITOR, NO SIGNS OF DISTRESS. Addendum: 03/06/21 at 0213 by Pily Carvajal RN RN wrong time- received bedside endorsement at 1917
[2021-03-05 07:33] LABS: BASOPHILS # (AUTO) 0.1 K/uL (0.00-0.22); BASOPHILS % (AUTO) 1.2 % (0.0-2.0); EOSINOPHILS # (AUTO) 0.2 K/uL (0-0.4); EOSINOPHILS % (AUTO) 4.4 % (0.0-4.0); HEMATOCRIT 28.8 % (36-48); HEMOGLOBIN 9.3 g/dL (12.0-16.0); LYMPHOCYTES # (AUTO) 1.7 K/uL (2.5-16.5); LYMPHOCYTES % (AUTO) 34.6 % (20.5-51.1); MEAN CORPUSCULAR HEMOGLOBIN 30 pg (27-31); MEAN CORPUSCULAR HGB CONC 32 g/dL (33-37); MEAN CORPUSCULAR VOLUME 91.6 fL (80-94); MONOCYTES # (AUTO) 0.4 K/uL (0.8-1.0); MONOCYTES % (AUTO) 7.8 % (1.7-9.3); NEUTROPHILS # (AUTO) 2.5 K/uL (1.8-7.7); PLATELET COUNT (AUTO) 305 K/uL (140-450); RED BLOOD CELL COUNT(AUTO) 3.14 MIL/uL (4.20-5.40); RED CELL DISTRIBUTION WIDTH 15.4 % (11.6-13.7); WHITE BLOOD COUNT (AUTO) 4.9 K/uL (4.8-10.8)
[2021-03-05 07:38] LABS: CHOL/HDL RATIO 6.1 (1-4.5)
[2021-03-05 08:00] VITALS: BP 158/78
--- NOTE | 2021-03-05 08:06 | NUR ---
Patient awake, alert and oriented, responds to simple commands. Denies pain and remains in bed with no further needs.
[2021-03-05 08:10] LABS: ALBUMIN 1.7 g/dL (3.4-5.0); ANION GAP 9.8 (8-16); CARBON DIOXIDE 32.9 mmol/L (21-32); CREATININE 3.3 mg/dL (0.6-1.3); POTASSIUM 3.7 mmol/L (3.5-5.1); TOTAL BILIRUBIN 0.4 mg/dL (0.0-1.0)
[2021-03-05 08:24] LABS: PROTHROMBIN TIME 10.4 secs (10.8-13.4)
--- NOTE | 2021-03-05 09:17 | NUR ---
PATIENT HAS BEEN SCREENED AND CATEGORIZED HIGH NUTRITION RISK. PATIENT WILL BE SEEN WITHIN 1-2 DAYS OF ADMISSION. 03/05/21-03/06/21 RECEIVED FNS CONSULT FOR WOUNDS/PRESSURE INJURIES VI CASTILL[address] RD
[2021-03-05] MEDS: DOCUSATE SODIUM 100 MG GELCAP PO SCH (09:31)
[2021-03-05 12:00] VITALS: BP 158/78
[2021-03-05 16:00] VITALS: BP 154/76
[2021-03-05 20:00] VITALS: BP 159/76
--- NOTE | 2021-03-05 20:55 | NUR ---
GAVE PATIENT SCHEDULED MED HEPARIN UPPER RIGHT ARM, TOLERATED WELL. WILL CONTINUE TO MONITOR
--- NOTE | 2021-03-06 02:00 | NUR ---
PATIENT IS IN BED ASLEEP, KEPT COMFORTABLE, NO SIGNS OF DISTRESS, OBSERVATION OF CHEST RISE AND FALL, SAFETY MEASURES IN PLACE, WILL CONTINUE TO MONITOR.
[2021-03-06 04:00] VITALS: BP 177/81
--- NOTE | 2021-03-06 05:43 | NUR ---
CHANGED PATIENTS DRESSING AND CLEANED WOUNDS ON ABDOMEN. PATIENTS DRAINAGE FROM OLD DRESSINGS WERE PURULENT, WITH MILD ODOR. DRESSINGS ARE DRY AND INTACT.
--- NOTE | 2021-03-06 07:34 | NUR ---
PASSED ON BEDSIDE ENDORSEMENT TO AM SHIFT RN. SCHEDULED MEDS AND INTERVENTIONS COMPLETED. PATIENT IS IN STABLE CONDITION.
[2021-03-06 07:42] LABS: BASOPHILS # (AUTO) 0.1 K/uL (0.00-0.22); BASOPHILS % (AUTO) 1.1 % (0.0-2.0); EOSINOPHILS # (AUTO) 0.2 K/uL (0-0.4); EOSINOPHILS % (AUTO) 4.4 % (0.0-4.0); HEMATOCRIT 27.3 % (36-48); HEMOGLOBIN 8.7 g/dL (12.0-16.0); LYMPHOCYTES # (AUTO) 1.6 K/uL (2.5-16.5); LYMPHOCYTES % (AUTO) 30.8 % (20.5-51.1); MEAN CORPUSCULAR HEMOGLOBIN 30 pg (27-31); MEAN CORPUSCULAR HGB CONC 32 g/dL (33-37); MONOCYTES # (AUTO) 0.4 K/uL (0.8-1.0); MONOCYTES % (AUTO) 7.2 % (1.7-9.3); NEUTROPHILS # (AUTO) 2.9 K/uL (1.8-7.7); NEUTROPHILS % (AUTO) 56.5 % (42.2-75.2); PLATELET COUNT (AUTO) 330 K/uL (140-450); RED BLOOD CELL COUNT(AUTO) 2.94 MIL/uL (4.20-5.40); RED CELL DISTRIBUTION WIDTH 15.2 % (11.6-13.7); WHITE BLOOD COUNT (AUTO) 5.2 K/uL (4.8-10.8)
--- NOTE | 2021-03-06 07:48 | NUR ---
Dialysis order placed 03/05/[address] chest[address] Dialysis Nurse didn't show up overnight. Called Dialysis team left message and paged. Notified Dr Luis and awaiting further instructions.
[2021-03-06 08:00] VITALS: BP 156/68
--- NOTE | 2021-03-06 08:08 | NUR ---
Notified Dialysis Nurse Seo to do Dialysis as soon as possible in the morning.
[2021-03-06 08:34] LABS: PROTHROMBIN TIME 10.4 secs (10.8-13.4)
--- NOTE | 2021-03-06 10:05 | NUR ---
WOUND CARE EVALUATION NOTE: WOUND ASSESSMENT DONE TO ABDOMEN MULTIPLE S/P SURGICAL WOUNDS DELAY HEALING. -MID ABDOMINAL WALL 1X1CM HEALED WOUND WITH DRY THIN SCAR TISSUE. -RLQ ABDOMINAL WALL 4X2X0.1CM WOUND BED WITH 100% SOFT SLOUGH TISSUE, NO ODOR, SMALL AMOUNT SEROUS DRAINAGE, ANGELA WOUND SKIN HEALING SCAR TISSUE. -LLQ ABDOMINAL WALL 8X2X0.1CM WOUND BED RED AND MOIST, NO ODOR, SMALL AMOUNT SEROUS DRAINAGE, ANGELA WOUND SKIN HEALING SCAR TISSUE. RECOMMENDATIONS: -CLEANSE LLQ AND RLQ ABDOMINAL WALL WOUNDS WITH WOUND CARE SOLUTIONS, PAT DRY, APPLY THERAHONEY GEL AND COVER WITH DRY DRESSING QD AND PRN NEEDED. -APPLY HEEL PROTECTORS TO BOTH HEELS AT ALL TIMES -OFFLOAD BILATERAL HEELS BY PLACING PILLOWS UNDER CALVES UNLESS OTHERWISE CONTRAINDICATED -PRESSURE REDISTRIBUTION SURFACE THERAPY -TURN AND REPOSITION Q2H, OFFLOAD SACRALCOCCYX AND BUTTOCKS BY TURNING RIGHT AND LEFT -CONTINUE TO FOLLOW RD RECOMMENDATIONS
[2021-03-06 10:23] LABS: CARBON DIOXIDE 30.9 mmol/L (21-32); POTASSIUM 3.9 mmol/L (3.5-5.1)
[2021-03-06 10:26] LABS: CREATININE 4.2 mg/dL (0.6-1.3)
[2021-03-06 10:29] LABS: ALBUMIN 1.7 g/dL (3.4-5.0); MAGNESIUM 2.2 mg/dL (1.8-2.4); TOTAL BILIRUBIN 0.3 mg/dL (0.0-1.0)
[2021-03-06] MEDS: DOCUSATE SODIUM 100 MG GELCAP PO SCH (11:09)
[2021-03-06 12:00] VITALS: BP 148/79
--- NOTE | 2021-03-06 12:57 | NUR ---
DC PLANNING: PT HAS A DC ORDER BACK TO [facility]. FAXED TO [facility] AND [facility] FOR TRANSPORT AUTH. CM TO FOLLOW Addendum: 03/06/21 at 1508 by Cheryl Potter RN DC PLANNING: PT ACCEPTED AT [facility] GOING TO ROOM 710 # TO GIVE REPORT [phone] [facility] TRANSPORT WITH [facility], PROVIDE AUTH# FROM [facility] [id number]. DERRICK FOLLOWER TIME 4:30PM NOTIFIED CHARLETTE LOADING UNIT OPERATOR POWDER CHARGING. CM TO FOLLOW Addendum: 03/06/21 at 1524 by Cheryl Potter RN DC PLANNING: DAYNA CARDOZO SPOKE WITH [facility] ALL THE PAPERWORK AND WILL KEEP THE SAME DAY AND TIME FOR DIALYSIS. CM TO FOLLOW
[2021-03-06 13:54] VITALS: BP 156/68
[2021-03-06] MEDS ORDERED: THERAHONEY GEL 42.5 GM TP SCH (15:00)
--- NOTE | 2021-03-06 15:17 | NUR ---
03/06/21 RD INITIAL ASSESSMENT COMPLETED PLEASE REFER TO NUTRITION ASSESSMENT UNDER CARE ACTIVITY FOR ESTIMATED NUTRITIONAL NEEDS. 1. CONTINUE RENAL DIET TOLERATED 2. RECOMMEND CHRISTINA BID FOR WOUND HEALING 3. RD TO FOLLOW-UP 3-5 DAYS, MODERATE RISK VI CASTILLO RD
--- NOTE | 2021-03-06 17:15 | NUR ---
Called longterm to give report twice but no response from facility. Patient discharged and instructions given to paramedics to ask Nurse to call for report.
== END 2021-03-06 17:22 ==
LOC: MED 11:55 → INTOOBSV 16:09 → MMU 16:09 → MTU 20:22
PROVIDERS: ADMIT Hospitalist; ATTEND Hospitalist
DX: G93.40 Encephalopathy, unspecified (principal); Z20.822 Contact with and (suspected) exposure to COVID-19; E11.22 Type 2 diabetes mellitus with diabetic chronic kidney disease; I13.2 Hypertensive heart and chronic kidney disease with heart failure and with stage 5 chronic kidney disease, or end stage renal disease; I50.32 Chronic diastolic (congestive) heart failure; N18.6 End stage renal disease; D64.9 Anemia, unspecified; E87.6 Hypokalemia; Z99.2 Dependence on renal dialysis; Z79.4 Long term (current) use of insulin; Z79.82 Long term (current) use of aspirin; Z79.899 Other long term (current) drug therapy
CPT/HCPCS: 36415; 70450; 71045; 71270; 80053; 80061; 82550; 82553; 83036; 83605; 83735; 83880; 84484; 85025; 85610; 85730; 87040; 87081; 87426; 93005; 96372; 99291; G0378; J1644; Q9967; 90935; Q0092

== ENCOUNTER 2022-06-07 13:27 | Inpatient (IN) | payer OTHER ==
[~2022-06-07] VITALS: Ht 165.1 cm; Wt 74.8 kg
[~2022-06-07 13:27] MED LIST changes: +ACET-2619 PO; +ACET-8905 PO; +ASCO500T95 PO; +ATOR10TA PO; +BISA-213 RC; -DOCU-299 PO; +HUM SUBQ; +LEVO75CA3 PO; -MAGN1.7529 PO; +MAGN400S60 PO; +MEGE40SU4 PO; -MORP2SOL18 IVP; +OMEP20EC11 PO; -OMEP20TC22 PO; +ONDA4TAB PO; +ZINC10OI TP
[2022-06-07 13:29] VITALS: BP 96/39
[2022-06-07] MEDS ORDERED: ONDANSETRON 4 MG/2 ML VIAL IVP ONE (13:55)
--- NOTE | 2022-06-07 14:00 | NUR ---
61F BIBA FROM DIALYSIS CLINIC TO ED WITH C/O LEFT ARM PAIN. EMS STATES PT WAS PREPARING TO RECEIVE DIALYSIS WHEN STAFF NOTED SWELLING TO LEFT UPPER ARM JUST OVER THE SHUNT LOCATION. PT REPORTS A CONSTANT, THROBBING LIKE, 10/10 PAIN TO LEFT ARM, NAUSEA WITH NO EPISODES OF VOMITING. PT CHANGED INTO GOWN, PLACED ON BEDSIDE MONITOR. DR. DIAZ MADE AWARE OF PT UPON ARRIVAL.
[2022-06-07 14:26] LABS: BASOPHILS # (AUTO) 0.1 K/uL (0.00-0.22); BASOPHILS % (AUTO) 1.8 % (0.0-2.0); EOSINOPHILS # (AUTO) 0.2 K/uL (0-0.4); EOSINOPHILS % (AUTO) 4.9 % (0.0-4.0); HEMATOCRIT 28.6 % (36-48); HEMOGLOBIN 9.1 g/dL (12.0-16.0); LYMPHOCYTES # (AUTO) 1.6 K/uL (2.5-16.5); LYMPHOCYTES % (AUTO) 37.2 % (20.5-51.1); MEAN CORPUSCULAR HEMOGLOBIN 31 pg (27-31); MEAN CORPUSCULAR HGB CONC 32 g/dL (33-37); MEAN CORPUSCULAR VOLUME 98.6 fL (80-94); MONOCYTES # (AUTO) 0.5 K/uL (0.8-1.0); MONOCYTES % (AUTO) 11.4 % (1.7-9.3); NEUTROPHILS # (AUTO) 1.9 K/uL (1.8-7.7); NEUTROPHILS % (AUTO) 44.7 % (42.2-75.2); PLATELET COUNT (AUTO) 136 K/uL (140-450); RED CELL DISTRIBUTION WIDTH 16.7 % (11.6-13.7); WHITE BLOOD COUNT (AUTO) 4.3 K/uL (4.8-10.8)
[2022-06-07 14:45] LABS: ANION GAP 20.5 (8-16); CARBON DIOXIDE 26.7 mmol/L (21-32); TOTAL BILIRUBIN 0.4 mg/dL (0.0-1.0)
[2022-06-07 14:53] LABS: POTASSIUM 7.2 mmol/L (3.5-5.1)
[2022-06-07 14:54] LABS: CREATININE 6.7 mg/dL (0.6-1.3)
[2022-06-07] MEDS ORDERED: INSULIN REGULAR, HUMAN 100 UNIT/ML VIAL IVP ONE (14:55)
[2022-06-07] MEDS ORDERED: FUROSEMIDE 40 MG/4 ML VIAL IVP ONE (14:55)
[2022-06-07] MEDS ORDERED: DEXTROSE 50% 50 ML SYR IVP ONE (14:55)
[2022-06-07] MEDS ORDERED: CALCIUM GLUCONATE 10% 1,000 MG in NACL 0.9% 50 ML IV ONE (14:55)
[2022-06-07 14:57] LABS: MAGNESIUM 2.9 mg/dL (1.8-2.4)
--- NOTE | 2022-06-07 14:59 | NUR ---
Pt taken to CT via rrohan.
[2022-06-07 15:00] LABS: PROTHROMBIN TIME 11.8 secs (10.8-13.4)
[2022-06-07 15:04] LABS: PHOSPHORUS 9.3 mg/dL (2.5-4.9)
[2022-06-07] MEDS ORDERED: CALCIUM GLUC 1 GM/50 mL NS BAG 50 ML IV ONE (15:35)
--- NOTE | 2022-06-07 16:32 | NUR ---
Patient appears to be resting in bed. Vital Signs within normal limits. Respirations even and unlabored, receiving oxygen 2L via NC.
[2022-06-07] MEDS ORDERED: ONDANSETRON 4 MG/2 ML VIAL IVP PRN (17:55)
[2022-06-07] MEDS ORDERED: ACETAMINOPHEN 325 MG TAB PO PRN (17:55)
--- NOTE | 2022-06-07 19:10 | NUR ---
Patient will be admitted to care of DR LEE. Admited to TELE. Will go to room 119B. Belongings list completed. Report to DIANNE SANFORD.
[2022-06-07] MEDS ORDERED: ATRMDI INH (19:21)
[2022-06-07] MEDS ORDERED: INSU100S5 (19:21)
[2022-06-07] MEDS ORDERED: PARO40TA65 PO (19:21)
[2022-06-07] MEDS ORDERED: HYDR-4420 PO (19:21)
[2022-06-07] MEDS ORDERED: SEVE800T25 PO (19:21)
[2022-06-07] MEDS ORDERED: LOSA25TA32 PO (19:21)
[2022-06-07] MEDS ORDERED: BUS5 PO (19:21)
[2022-06-07] MEDS ORDERED: VANC50SO PO (19:21)
[2022-06-07] MEDS ORDERED: CARV3.122 PO (19:21)
[2022-06-07 20:00] VITALS: BP 123/58
--- NOTE | 2022-06-07 20:35 | NUR ---
GET THE REPORT FROM NIGHT NURSE TOMY, PATIENT IS LYING ON BED, PATIENT IS ALERT ORIENTED X3, PATIENT IS ALREADY GETTING DIALYSIS , NOTICED THERE IS NO DIALYSIS CONSENT, CALL FAMILY SISTER ADD GET TELEPHONE CONSENT, WITH WITNESS NURSE ALEENA, WILL CONTINUE TO MONITOR PATIENT.
[2022-06-07] MEDS ORDERED: ALTEPLASE 2 MG VIAL MC SCH (20:45)
[2022-06-07] MEDS ORDERED: ALTEPLASE 2 MG VIAL MC ONE (20:56)
--- NOTE | 2022-06-07 20:59 | NUR ---
PATIENT IS VOMITING, GAVE ZOFRAN IV PRN PER DOCTOR ORDER, CALL LIGHT IS WITHIN THE REACH, WILL CONTINUE TO MONITOR PATIENT.
--- NOTE | 2022-06-07 21:29 | NUR ---
DOCTOR ORDER ALTEPLASE 2 VIEL 4MG , IN HOSPITAL THERE IS ONLY ONE VIEL WAS AVAILABLE AT THE MOVEMENT PAINTING SUPERVISOR ILIANA SAID , DIALYSIS ISAMAR NAME JOSEF ACE SAID HE SPOKE TO DOCTOR BRIAN AND HE SAID IS OK TO GIVE ONLY ONE VIEL AVAILABLE, ORDER PLACED AND CARRIED OUT , WILL CONTINUE TO MONITOR PATIENT,DALASIS RUN FOR TWO AND HALF HOUR AND 1 LITER FLUID IS OUT,
--- NOTE | 2022-06-07 23:30 | NUR ---
PATIENT SAID PATIENT IS BLIND IN BOTH EYES SINCE LAST ONE YEAR, WILL CONTINUE TO MONITOR PATIENT.
[2022-06-07] MEDS: HYDROcodone/APAP 5/325 MG 1 TAB TAB PO PRN (23:56)
[2022-06-08] VITALS: BP 120/60
--- NOTE | 2022-06-08 00:03 | NUR ---
PATIENT IS COMPLAINING OF PAIN IN HEAD, NORCO GIVEN PER DOCTOR ORDER, CALL LIGHT IS WITHIN THE REACH, WILL CONTINUE TO MONITOR PATIENT.
--- NOTE | 2022-06-08 00:13 | NUR ---
VITAL SIGN IS WITHIN THE NORMAL RANGE,PATIENT IS LYING ON BED, CALL LIGHT IS WITHIN THE REACH, WILL CONTINUE TO MONITOR PATIENT.
[2022-06-08 04:00] VITALS: BP 101/56
--- NOTE | 2022-06-08 04:19 | NUR ---
PATIENT IS LYING ON BED, VITAL SIGN IS WITHIN THE NORMAL RANGE, NO ANY COMPLAIN OF PAIN OR SOB AT THIS TIME, CALL LIGHT IS WITHIN THE REACH, WILL CONTINUE TO MONITOR PATIENT.
--- NOTE | 2022-06-08 04:41 | NUR ---
RECHECKED THE PATIENT BLOOD PRESURE AND IS 101/58, HR 62, WILL CONTINUE TO MONITOR PATIENT.
[2022-06-08 06:27] LABS: ANION GAP 16.5 (8-16); CARBON DIOXIDE 30.3 mmol/L (21-32)
[2022-06-08 06:32] LABS: POTASSIUM 6.8 mmol/L (3.5-5.1)
[2022-06-08 06:33] LABS: CREATININE 6.2 mg/dL (0.6-1.3)
--- NOTE | 2022-06-08 06:38 | NUR ---
LAB CALLED AND REPORTED CRITICAL LAB POTASSIUM :6.8,BUN:86,CREATININE;6.2, NOT REPORTED TO DOCTOR DUE TO TRENDING DOWN, WILL CONTINUE TO MONITOR PATIENT.
[2022-06-08 06:41] LABS: MAGNESIUM 2.8 mg/dL (1.8-2.4); PHOSPHORUS 8.7 mg/dL (2.5-4.9)
[2022-06-08 07:05] LABS: BASOPHILS # (AUTO) 0.1 K/uL (0.00-0.22); BASOPHILS % (AUTO) 1.5 % (0.0-2.0); EOSINOPHILS # (AUTO) 0.1 K/uL (0-0.4); EOSINOPHILS % (AUTO) 1.6 % (0.0-4.0); HEMATOCRIT 22.1 % (36-48); LYMPHOCYTES # (AUTO) 1.3 K/uL (2.5-16.5); LYMPHOCYTES % (AUTO) 33.7 % (20.5-51.1); MEAN CORPUSCULAR HEMOGLOBIN 31 pg (27-31); MEAN CORPUSCULAR HGB CONC 32 g/dL (33-37); MEAN CORPUSCULAR VOLUME 98.7 fL (80-94); MONOCYTES # (AUTO) 0.4 K/uL (0.8-1.0); MONOCYTES % (AUTO) 10.4 % (1.7-9.3); NEUTROPHILS % (AUTO) 52.8 % (42.2-75.2); PLATELET COUNT (AUTO) 123 K/uL (140-450); RED BLOOD CELL COUNT(AUTO) 2.24 MIL/uL (4.20-5.40); RED CELL DISTRIBUTION WIDTH 16.5 % (11.6-13.7); WHITE BLOOD COUNT (AUTO) 3.7 K/uL (4.8-10.8)
--- NOTE | 2022-06-08 07:27 | NUR ---
GAVE THE REPORT TO MORNING NURSE PERLITA FOR CONTINUOS OF CARE, PATIENT IS STABLE, SIGNING OUT.
[2022-06-08 08:00] VITALS: BP 90/59
[2022-06-08] MEDS: DOCUSATE SODIUM 100 MG GELCAP PO SCH (09:20)
--- NOTE | 2022-06-08 10:28 | NUR ---
RECEIVED CALL FROM NEPHTHIEN HORTON,NOTIFIED OF POTASSIUM 6.8, MAGNET VALVE ASSEMBLER 6.2, HGB 7, BP 90/59. RECEIVED ORDER FOR MIDODRINE 10MG x1. ORDERS VERIFIED.
[2022-06-08] MEDS ORDERED: CALCIUM GLUCONATE 10% 1,000 MG in NACL 0.9% 50 ML IV SCH (10:30)
[2022-06-08] MEDS ORDERED: MIDODRINE 5 MG TAB PO SCH (11:00)
[2022-06-08 12:00] VITALS: BP 125/73
--- NOTE | 2022-06-08 13:00 | NUR ---
DISCHARGE PLANNING PATIENT IS A 61 YEAR OLD FEMALE ADMITTED TO THE [facility]/ED ON 06/07/2022 DUE TO HYPERKALEMIA/END STAGE. SW MEET WITH PATIENT AT BEDSIDE TO DISCUSS AND GATHER HER COLLATERAL INFORMATION. PATIENT WAS AWAKE AND ALERT AT THE TIME OF THE MEETING WITH KANWAL PATIENT WAS ABLE TO PROVIDE ALL HER INFORMATION. PER PATIENT SHE IS BEEN IN [facility] FACILITY FOR ABOUT 2 YEARS AND HAS NO ISSUES WITH THEIR SERVICES,ACCORDING TO PATIENT THEY CARE FOR HER MEDICATIONS, EQUIPMENT, BUT WILL LIKE TO RECEIVED PHYSICAL THERAPY. PER PATIENT SHE WILL LIKE TO GO BACK TO THE FACILITY WHEN SHE IS READY AND STABLE TO DISCHARGE FROM [facility]. PER PATIENT SHE IS GETTING DIALYSIS AT [facility] [place] AT 1:00 PM. PER PATIENT SHE GETS TRANSPORTED BY [facility].FOR DIALYSIS EVERY WEEK. PATIENT REPORTED HAVING A.D. IN PLACE AND HAVING HER SISTER JOSE GUADALUPE MARROQUIN HER EMERGENCY CONTACT AND MEDICAL DECISION MAKER. PATIENT WAS THANKFUL FOR THE MEETING WITH KANWAL AND ENDED THE VISIT. KANWAL CALL [facility] OFFICE AT SPOKE TO VICTORIANO ABOUT PATIENT'S COLLATERAL INFORMATION. VICTORIANO CONFIRMED PATIENT'S INFORMATION WITH DIALYSIS AND TRANSPORT AND REPORTED THAT PATIENT IS IN A DETENTION BED HOLD AND THAT PATIENT IS ABLE TO RETURNED TO [facility] WHEN SHE IS READY AND STABLE TO DISCHARGE. KANWAL THANKED HER FOR ALL HER INFORMATION AND ENDED THE CALL. KANWAL/NATALY WILL FOLLOW UP NEEDED.
[2022-06-08] MEDS: HYDROcodone/APAP 5/325 MG 1 TAB TAB PO PRN (15:23)
[2022-06-08 16:00] VITALS: BP 129/58
[2022-06-08 16:42] LABS: CARBON DIOXIDE 31.1 mmol/L (21-32); CREATININE 3.6 mg/dL (0.6-1.3); POTASSIUM 4.1 mmol/L (3.5-5.1)
--- NOTE | 2022-06-08 17:37 | NUR ---
PATIENT HAS BEEN SCREENED AND CATEGORIZED HIGH NUTRITION RISK. PATIENT WILL BE SEEN WITHIN 1-2 DAYS OF ADMISSION. 06/09/2212/15/22 CONSULT RECEIVED FOR WOUNDS/PRESSURE INJURY JAVAD OSORIO RD
--- NOTE | 2022-06-08 19:10 | NUR ---
REPORT GIVEN TO PM NURSE FOR CONTINUITY OF CARE. PT REMAINS STABLE.
[2022-06-08 20:00] VITALS: BP 103/34
--- NOTE | 2022-06-08 20:00 | NUR ---
RECEIVED REPORT FROM DAY RN FOR CONTINUITY OF CARE.PT A&O X 4, ON 2L O2 VIA NC. BREATHING EVEN AND UNLABORED. PT IS LEGALLY BLIND, PT HAS IV ON R THUMB G24. SL, PT HAS A SWOLLEN LEFT UPPER ARM WITH BLISTERS. NO OTHER COMPLAINS. ALL PRECAUTIONS IN PLACE. WILL CONTINUE TO MONITOR.
--- NOTE | 2022-06-08 23:30 | NUR ---
PER MD, PT IS OKAY TO EAT. PATIENT GIVEN SOME FOOD. PT TOLERATED WELL. WILL CONTINUE TO MONITOR.
[2022-06-09] VITALS: BP 128/38
[2022-06-09 04:00] VITALS: BP 123/44
--- NOTE | 2022-06-09 06:21 | NUR ---
PT IS STABLE. NO ACUTE EVENTS THROUGHOUT THE NIGHT. BREATHING EVEN AND UNLABORED, PT ON 2L O2 VIA NC. S/SX OF DISTRESS AT THIS TIME. NO S/SX OF PAIN.ALL NEEDS MET. ALL PRECAUTIONS IN PLACE. CALL LIGHT WITHIN REACH. WILL ENDORSE TO AM SHIFT NURSE.
[2022-06-09 07:04] LABS: BASOPHILS # (AUTO) 0.1 K/uL (0.00-0.22); BASOPHILS % (AUTO) 1.9 % (0.0-2.0); EOSINOPHILS # (AUTO) 0.1 K/uL (0-0.4); EOSINOPHILS % (AUTO) 4.6 % (0.0-4.0); HEMATOCRIT 21.3 % (36-48); LYMPHOCYTES % (AUTO) 33.1 % (20.5-51.1); MEAN CORPUSCULAR HEMOGLOBIN 31 pg (27-31); MEAN CORPUSCULAR HGB CONC 31 g/dL (33-37); MEAN CORPUSCULAR VOLUME 100.4 fL (80-94); MONOCYTES # (AUTO) 0.4 K/uL (0.8-1.0); MONOCYTES % (AUTO) 14.7 % (1.7-9.3); NEUTROPHILS # (AUTO) 1.4 K/uL (1.8-7.7); NEUTROPHILS % (AUTO) 45.7 % (42.2-75.2); PLATELET COUNT (AUTO) 102 K/uL (140-450); RED BLOOD CELL COUNT(AUTO) 2.13 MIL/uL (4.20-5.40); RED CELL DISTRIBUTION WIDTH 17.3 % (11.6-13.7)
[2022-06-09 07:12] LABS: ANION GAP 8.7 (8-16); CARBON DIOXIDE 31.5 mmol/L (21-32); POTASSIUM 5.2 mmol/L (3.5-5.1)
[2022-06-09 07:23] LABS: MAGNESIUM 2.5 mg/dL (1.8-2.4); PHOSPHORUS 7.5 mg/dL (2.5-4.9)
[2022-06-09 07:28] LABS: CREATININE 4.3 mg/dL (0.6-1.3)
[2022-06-09 07:52] LABS: HEMOGLOBIN 6.7 g/dL (12.0-16.0)
[2022-06-09 08:00] VITALS: BP 127/56
[2022-06-09] MEDS: DOCUSATE SODIUM 100 MG GELCAP PO SCH (09:50)
[2022-06-09] MEDS: HYDROcodone/APAP 5/325 MG 1 TAB TAB PO PRN (10:58)
--- NOTE | 2022-06-09 11:59 | NUR ---
WOUND CARE NOTE: PT. IS AAX4, PT. ADMITTED WITH A SKIN TEAR 4X3X0.1CM , WOUND BED RED AND MOIST, ANGELA-WOUND SKIN A BLISTERING SKIN , AREA COVER WITH OIL EMULSION DRESSING. , AT BED SIDE DURING ASSESSMENT. POC DISCUSSED. RECOMMENDATIONS: -CLEANSE LEFT UPPER ARM SKIN TEAR AND BLISTERING SKIN WITH NS. PAT DRY APPLY OIL EMULSION DRESSING,COVER WITH DRY DRESSING QD AND PRN IF SOILING -POSITIONING: TURN AND REPOSITION PATIENT Q 2H OR SOONER USE PILLOWS TO KEEP BONY PROMINENCES FROM DIRECT CONTACT WITH SURFACES USE REPOSITIONING WEDGES TO PROVIDE 30-DEGREE ANGLE FOR SIDE LYING POSITIONS OFFLOADING OR FOAM DRESSING TO ALL TUBING TO PREVENT MEDICAL DEVICES RELATED PRESSURE INJURY -RE-EVALUATING AND MANAGING INCONTINENCE MONITOR SKIN CONDITION DURING POSITION CHANGE DO NOT MASSAGE REDNESS, BONY PROMINENCES FREQUENT ANGELA-CARE AND PROVIDE BARRIER CREAMS PRN IF SOILING MOISTURE CONTROL BY OFFER BED GUTIERREZ/URINAL /ABSORBENT PAD TO WICK AND HOLD MOISTURE KEEP SKIN DRY AND PROTECT FROM FRICTION -MANAGE FRICTION/SHEAR/MOBILITY KEEP HOB AT THE LOWEST LEVEL OF ELEVATION NO MORE THAN 30 DEGREE UNLESS OTHERWISE CONTRAINDICATED USE LIFT SHEET OR TRANSFER DEVICE TO MOVE PATIENT AND PREVENT LATERAL SHEER. PROTECT HEELS, ELBOWS BONY PROMINENCES WITH SKIN BERRIES OR FOAM DRESSING IF EXPOSED TO FRICTION OFFLOAD BILATERAL HEELS BY PLACING PILLOWS UNDER CALVES AT ALL TIMES, UNLESS OTHERWISE CONTRAINDICATED -PRESSURE REDISTRIBUTION SURFACE THERAPY DEYANIRA ISOFLEX MATTRESS -NUTRITION: PLEASE FOLLOW RD RECOMMENDATIONS AND OFFER NUTRITION SUPPLEMENTS IF ORDERED. PLEASE CONTACT WOUND CARE NURSE FOR ANY QUESTION AND CHANGE OF WOUND CONDITION.
[2022-06-09 12:00] VITALS: BP 153/46
[2022-06-09] MEDS: NON ADHERENT DRESSING TP SCH (12:58)
[2022-06-09 13:05] LABS: BASOPHILS % (AUTO) 0.9 % (0.0-2.0); EOSINOPHILS # (AUTO) 0.2 K/uL (0-0.4); EOSINOPHILS % (AUTO) 3.6 % (0.0-4.0); HEMATOCRIT 21.5 % (36-48); LYMPHOCYTES # (AUTO) 1.3 K/uL (2.5-16.5); LYMPHOCYTES % (AUTO) 30.5 % (20.5-51.1); MEAN CORPUSCULAR HEMOGLOBIN 32 pg (27-31); MEAN CORPUSCULAR HGB CONC 32 g/dL (33-37); MEAN CORPUSCULAR VOLUME 99.7 fL (80-94); MONOCYTES # (AUTO) 0.7 K/uL (0.8-1.0); MONOCYTES % (AUTO) 16.4 % (1.7-9.3); NEUTROPHILS % (AUTO) 48.6 % (42.2-75.2); PLATELET COUNT (AUTO) 98 K/uL (140-450); RED BLOOD CELL COUNT(AUTO) 2.16 MIL/uL (4.20-5.40); RED CELL DISTRIBUTION WIDTH 17.3 % (11.6-13.7); WHITE BLOOD COUNT (AUTO) 4.2 K/uL (4.8-10.8)
[2022-06-09 13:13] LABS: HEMOGLOBIN 6.9 g/dL (12.0-16.0)
--- NOTE | 2022-06-09 15:46 | NUR ---
1. PATIENT WILL CONSUME >75% OF ESTIMATED KCAL AND PROTEIN NEEDS WITHIN 3-5 DAYS DIETITIAN WILL MONITOR PO INTAKE, NUTRITION-RELATED LABS TRENDING WNL, SKIN INTEGRITY, WEIGHTS, GI FUNCTION. DISCHARGE PLAN: PATIENT SHOULD BE ABLE TO CONTINUE WITH CURRENT DIET UPON DISCHARGE. REVIEWED BY JAVAD OSORIO RD Addendum: 06/09/22 at [address] 06/09/22 RD INITIAL ASSESSMENT COMPLETED PLEASE REFER TO NUTRITION ASSESSMENT UNDER CARE ACTIVITY FOR ESTIMATED NUTRITIONAL NEEDS. 1. RECOMMEND RENAL MECHANICAL SOFT DIET TOLERATED. 2. RECOMMEND NEPRO 1XDAY TO INCREASE PROTEIN DUE TO LOW PO INTAKE. 3. MONITOR GI SYMPTOMS 4. RD TO FOLLOW-UP 3-5 DAYS, MODERATE RISK REVIEWED BY JAVAD OSORIO RD
[2022-06-09 16:00] VITALS: BP 122/41
[2022-06-09] MEDS ORDERED: ALTEPLASE 2 MG VIAL MC SCH (18:30)
--- NOTE | 2022-06-09 19:06 | NUR ---
PATIENT'S HGB-6.7 @[address] LEE INFORMED AND 1 UNIT BLOOD ORDERED FOR TRANSFUSION DURING DIALYSIS. AROUND PATIENT'S HGB RESULT 6.9; BLOOD STILL NOT READY YET. AROUND 1829, DIALYSIS NURSE FOUND THAT PATIENT'S PERM-CATHETER UNABLE TO FUNCTION NORMAL AND ONE DOSE CATHFLO ACTIVASE GIVEN, BLOOD RETURN TO BLOOD BANK & AVAILABLE FOR LATER USE. WILL ENDORSE TO NEXT SHIFT NURSE. Addendum: 06/09/22 at 1925 by Kayla Alvarenga RN PATIENT'S HGB=6.7 @0800 PER LAB REPORT; AROUND 1000 PATIENT'S HGB=6.9 Addendum: 06/09/22 at 193 by Kayla Alvarenga RN ENDORSE PATIENT TO PM SHIFT NURSE AFTER CATHFLO ADMIT BUT UNABLE TO START BLOOD TRANSFUSION. BLOOD CAN GIVE DURING TOMORROW'S DIALYSIS SINCE TODAY WAS NOT ABLE TO START DIALYSIS D/T PERM-CATHETER ISSUE.
--- NOTE | 2022-06-09 19:30 | NUR ---
RECEIVED REPORT FROM MORNING SHIFT NURSE. PT IS AOX4, BEDBOUND. PT IS LEGALLY BLIND, ON 2L NC AND ON RENAL DIET. PT HAS NO IV, DR. WARD AND DR. BAILEY WAS AWARE ACCORDING TO DIANNE MAE. THERE'S PENDING 1 PRBC FOR THE PT IN THE BLOOD BANK BUT CANT INFUSE DUE TO NO IV ACCESS, DOCTORS WAS AWARE. PT HAS CELLULITIS AT THE BACK, LEFT UPPER ARM ABCESS AND SACRAL WOUND. NO COMPLAIN OF PAIN AT THIS TIME. NO S/S OF RESPIRATORY DISTRESS NOTED. ALL SAFETY MEASURES IMPLEMENTED. BED IN LOW POSITION, BED WHEELS ON LOCK AND CALL LIGHT WITHIN REACH.
[2022-06-09 20:00] VITALS: BP 123/50
--- NOTE | 2022-06-09 22:00 | NUR ---
PT WAS GIVEN WARM BLANKET. FIXED AND CLEANED PT THINGS AND ROOM. PT DENIES PAIN AT THIS TIME. NO S/S OF RESPIRATORY DISTRESS NOTED. ALL SAFETY MEASURES IMPLEMENTED. BED IN OW POSITION, BED WHEELS ON LOCK AND CALL LIGHT WITHIN REACH.
[2022-06-10] VITALS: BP 151/50
--- NOTE | 2022-06-10 00:02 | NUR ---
RECEIVED A CALL NAMED JOSE GUADALUPE, PT'S SISTER, ASKING THE CONDITION OF THE PT ESPECIALLY THE DIALYSIS AND BLOOD TRANSFUSION. TOLD THE SISTER THAT DIALYSIS WASN'T DONE DUE TO PERM-CATH WASN'T FUNCTIONING NORMALLY AND BLOOD TRANSFUSION WASN'T TRANSFUSE TO PT DUE TO NO IV ACCESS AND MD'S ARE AWARE OF THAT.
--- NOTE | 2022-06-10 02:00 | NUR ---
PT IS SLEEPING. CHEST RISE AND FALL SYMMETRICALLY NOTED. RESPIRATION IS EVEN AND UNLABORED. ALL SAFETY MEASURES IMPLEMENTED. BED IN OW POSITION, BED WHEELS ON LOCK AND CALL LIGHT WITHIN REACH.
[2022-06-10 04:00] VITALS: BP 149/52
--- NOTE | 2022-06-10 04:00 | NUR ---
CHECKED PT STILL SLEEPING. CHEST RISE AND FALL SYMMETRICALLY NOTED. RESPIRATION IS EVEN AND UNLABORED. ALL SAFETY MEASURES IMPLEMENTED. BED IN OW POSITION, BED WHEELS ON LOCK AND CALL LIGHT WITHIN REACH.
--- NOTE | 2022-06-10 05:30 | NUR ---
PT REFUSED TO GET BLOOD SAMPLE. EDUCATED THE PT THE IMPORTANCE OF GETTING THE BLOOD SAMPLE, BUT PT STILL REFUSING IT.
--- NOTE | 2022-06-10 07:41 | NUR ---
PT IS STABLE. ENDORSED PT TO MORNING SHIFT NURSE FOR CONTINUITY OF CARE.
[2022-06-10 08:00] VITALS: BP 153/46
[2022-06-10 08:47] LABS: ANION GAP 15.4 (8-16); CARBON DIOXIDE 26.9 mmol/L (21-32)
[2022-06-10 08:50] LABS: BASOPHILS % (AUTO) 0.9 % (0.0-2.0); HEMATOCRIT 20.9 % (36-48); LYMPHOCYTES # (AUTO) 0.9 K/uL (2.5-16.5); LYMPHOCYTES % (AUTO) 24.9 % (20.5-51.1); MEAN CORPUSCULAR HEMOGLOBIN 32 pg (27-31); MEAN CORPUSCULAR HGB CONC 32 g/dL (33-37); MEAN CORPUSCULAR VOLUME 99.9 fL (80-94); MONOCYTES # (AUTO) 0.3 K/uL (0.8-1.0); MONOCYTES % (AUTO) 9.8 % (1.7-9.3); NEUTROPHILS # (AUTO) 2.2 K/uL (1.8-7.7); NEUTROPHILS % (AUTO) 63.4 % (42.2-75.2); PLATELET COUNT (AUTO) 97 K/uL (140-450); RED BLOOD CELL COUNT(AUTO) 2.09 MIL/uL (4.20-5.40); RED CELL DISTRIBUTION WIDTH 16.7 % (11.6-13.7); WHITE BLOOD COUNT (AUTO) 3.5 K/uL (4.8-10.8)
[2022-06-10 08:52] LABS: MAGNESIUM 2.5 mg/dL (1.8-2.4); PHOSPHORUS 8.8 mg/dL (2.5-4.9)
[2022-06-10 08:55] LABS: CREATININE 5.8 mg/dL (0.6-1.3); POTASSIUM 6.3 mmol/L (3.5-5.1)
[2022-06-10 09:21] LABS: HEMOGLOBIN 6.6 g/dL (12.0-16.0)
--- NOTE | 2022-06-10 09:22 | NUR ---
RECEIVED CRITICAL LAB REPORT OF HGB OF 6.6. NOTIFIED, TO TRANSFUSE 1 UNIT OF PRBC.
[2022-06-10] MEDS: DOCUSATE SODIUM 100 MG GELCAP PO SCH (09:25)
[2022-06-10] MEDS: HYDROmorphone 2 MG TAB PO PRN (11:34)
[2022-06-10] MEDS: NON ADHERENT DRESSING TP SCH (13:31)
[2022-06-10 13:32] VITALS: BP 165/61
[2022-06-10] MEDS ORDERED: ALTEPLASE 2 MG VIAL MC SCH ×2 (14:50→15:00)
[2022-06-10 19:03] VITALS: BP 165/61
--- NOTE | 2022-06-10 20:45 | NUR ---
"RESTRICTED EXTREMITY " ARM BAND - PUT ON THE L ARM - REMINDS LAB STAFF THER IS HD ACCESS ON THIS ARM . - PPUT SIGN ON THE WALL TO FOR RESTRICTED ARM . - WILL ENDORSE .
[2022-06-10 20:55] LABS: BASOPHILS % (AUTO) 0.8 % (0.0-2.0); EOSINOPHILS % (AUTO) 0.9 % (0.0-4.0); HEMATOCRIT 23.7 % (36-48); HEMOGLOBIN 7.8 g/dL (12.0-16.0); LYMPHOCYTES # (AUTO) 0.8 K/uL (2.5-16.5); MEAN CORPUSCULAR HEMOGLOBIN 31 pg (27-31); MEAN CORPUSCULAR HGB CONC 33 g/dL (33-37); MEAN CORPUSCULAR VOLUME 95.9 fL (80-94); MONOCYTES # (AUTO) 0.6 K/uL (0.8-1.0); MONOCYTES % (AUTO) 12.9 % (1.7-9.3); NEUTROPHILS # (AUTO) 2.9 K/uL (1.8-7.7); NEUTROPHILS % (AUTO) 66.4 % (42.2-75.2); PLATELET COUNT (AUTO) 82 K/uL (140-450); RED BLOOD CELL COUNT(AUTO) 2.47 MIL/uL (4.20-5.40); RED CELL DISTRIBUTION WIDTH 16.1 % (11.6-13.7); WHITE BLOOD COUNT (AUTO) 4.4 K/uL (4.8-10.8)
--- NOTE | 2022-06-10 23:23 | NUR ---
BS CHECK 117
[2022-06-11] VITALS: BP_SYST 161; BP_SYST 173; BP_DIAS 59; BP_DIAS 73
[2022-06-11 04:00] VITALS: BP 145/82
--- NOTE | 2022-06-11 04:00 | NUR ---
ROUNDS , NO S/X OF ACUTE DISTRESS MNOTED , CALL LIGHT WITHIN REACH .
[2022-06-11 06:03] LABS: BASOPHILS % (AUTO) 0.8 % (0.0-2.0); EOSINOPHILS % (AUTO) 0.6 % (0.0-4.0); HEMATOCRIT 23.4 % (36-48); HEMOGLOBIN 7.8 g/dL (12.0-16.0); LYMPHOCYTES % (AUTO) 23.4 % (20.5-51.1); MEAN CORPUSCULAR HEMOGLOBIN 32 pg (27-31); MEAN CORPUSCULAR HGB CONC 33 g/dL (33-37); MEAN CORPUSCULAR VOLUME 95.9 fL (80-94); MONOCYTES # (AUTO) 0.4 K/uL (0.8-1.0); MONOCYTES % (AUTO) 10.4 % (1.7-9.3); NEUTROPHILS # (AUTO) 2.6 K/uL (1.8-7.7); NEUTROPHILS % (AUTO) 64.8 % (42.2-75.2); PLATELET COUNT (AUTO) 75 K/uL (140-450); RED BLOOD CELL COUNT(AUTO) 2.44 MIL/uL (4.20-5.40); RED CELL DISTRIBUTION WIDTH 16.4 % (11.6-13.7); WHITE BLOOD COUNT (AUTO) 4.1 K/uL (4.8-10.8)
[2022-06-11 06:40] LABS: ANION GAP 12.2 (8-16); CARBON DIOXIDE 31.9 mmol/L (21-32); CREATININE 3.5 mg/dL (0.6-1.3); POTASSIUM 4.1 mmol/L (3.5-5.1)
[2022-06-11 06:42] LABS: MAGNESIUM 2.1 mg/dL (1.8-2.4); PHOSPHORUS 5.7 mg/dL (2.5-4.9)
--- NOTE | 2022-06-11 06:48 | NUR ---
BS 91 - WILL ENDORSE , NPO
--- NOTE | 2022-06-11 07:15 | NUR ---
CHECK ON PT FOR ROUNDS PT IS SLEEPING NO DISTRESS NOTED. WILL CONTINUE TO MONITOR
--- NOTE | 2022-06-11 07:50 | NUR ---
ENDORSED PT FOR CONT. OF CARE . FOR CONSENT .
[2022-06-11] MEDS: HYDROmorphone 2 MG TAB PO PRN ×2 (08:20→23:17)
[2022-06-11] MEDS: DOCUSATE SODIUM 100 MG GELCAP PO SCH (08:20)
[2022-06-11 12:00] VITALS: BP 111/28
[2022-06-11] MEDS: NON ADHERENT DRESSING TP SCH (13:29)
--- NOTE | 2022-06-11 14:19 | NUR ---
PT LEFT TO OR TO HAVE THE CATHETER REPLACED. CHANGED THE LEFT ARM DRESSING BEFORE PT LEFT, THE LEFT UPPER ARM SWOLLEN AND HAS BLISTER WELL OPENING AND IT IS VERY PAIN FULL . ON THE RIGHT HAND BY THE BIG THUMB, APPLIED ICE TWO TIMES BUT STILL RED AND THE WHOLE HAND IS SWOLLEN.[id number]
[2022-06-11] MEDS ORDERED: BUPIVACAINE MPF 0.25% 10 ML VIAL INJ ONE (14:22)
[2022-06-11] MEDS ORDERED: PROPOFOL 200 MG/20 ML VIAL IV ONE ×2 (14:54)
[2022-06-11] MEDS ORDERED: hydrALAZINE 20 MG/ML VIAL IVP PRN (15:24)
[2022-06-11] MEDS ORDERED: LABETALOL 20 MG/4 ML VIAL IVP PRN (15:24)
[2022-06-11] MEDS ORDERED: BLOOD GLUCOSE MONITORING 1 DEV DEV FS SCH (15:25)
[2022-06-11] MEDS ORDERED: ONDANSETRON 4 MG/2 ML VIAL IVP PRN (15:25)
[2022-06-11] MEDS ORDERED: HYDROmorphone 1 MG/ML AMP IVP PRN (15:25)
[2022-06-11 16:00] VITALS: BP 141/43
--- NOTE | 2022-06-11 16:02 | NUR ---
PT BACK FROM SURGERY, EATING THE LUNCH ALREADY.[id number]
[2022-06-11 22:47] VITALS: BP 128/52
[2022-06-12 05:14] VITALS: BP 116/52
[2022-06-12 06:05] LABS: BASOPHILS % (AUTO) 0.6 % (0.0-2.0); EOSINOPHILS # (AUTO) 0.1 K/uL (0-0.4); EOSINOPHILS % (AUTO) 1.4 % (0.0-4.0); HEMATOCRIT 23.4 % (36-48); HEMOGLOBIN 7.6 g/dL (12.0-16.0); LYMPHOCYTES # (AUTO) 1.1 K/uL (2.5-16.5); LYMPHOCYTES % (AUTO) 20.9 % (20.5-51.1); MEAN CORPUSCULAR HEMOGLOBIN 31 pg (27-31); MEAN CORPUSCULAR HGB CONC 32 g/dL (33-37); MEAN CORPUSCULAR VOLUME 96.9 fL (80-94); MONOCYTES # (AUTO) 0.5 K/uL (0.8-1.0); MONOCYTES % (AUTO) 10.3 % (1.7-9.3); NEUTROPHILS # (AUTO) 3.4 K/uL (1.8-7.7); NEUTROPHILS % (AUTO) 66.8 % (42.2-75.2); PLATELET COUNT (AUTO) 96 K/uL (140-450); RED BLOOD CELL COUNT(AUTO) 2.41 MIL/uL (4.20-5.40); RED CELL DISTRIBUTION WIDTH 15.9 % (11.6-13.7); WHITE BLOOD COUNT (AUTO) 5.1 K/uL (4.8-10.8)
--- NOTE | 2022-06-12 06:08 | NUR ---
Pt. needs met this shift, vss, medicated for pain with good results, call light in reach. Will endorse to day shift to call to get order for dialysis today.
[2022-06-12 06:11] LABS: ANION GAP 13.7 (8-16); POTASSIUM 4.7 mmol/L (3.5-5.1)
[2022-06-12 06:24] LABS: MAGNESIUM 2.3 mg/dL (1.8-2.4); PHOSPHORUS 7.2 mg/dL (2.5-4.9)
[2022-06-12 06:37] LABS: CREATININE 4.8 mg/dL (0.6-1.3)
--- NOTE | 2022-06-12 06:43 | NUR ---
Mia from lab called with critical lab of 4.8 creatinine. Pt. to have dialysis today, no acute changes in pt. noted.
[2022-06-12 08:00] VITALS: BP 143/45
[2022-06-12] MEDS: DOCUSATE SODIUM 100 MG GELCAP PO SCH (08:48)
[2022-06-12] MEDS: HYDROmorphone 2 MG TAB PO PRN ×2 (11:24→20:59)
[2022-06-12 12:00] VITALS: BP 145/43
[2022-06-12] MEDS: NON ADHERENT DRESSING TP SCH (12:46)
[2022-06-12 16:00] VITALS: BP 125/27
[2022-06-12 21:04] VITALS: BP 144/32
--- NOTE | 2022-06-13 05:28 | NUR ---
rn notes patient remains on room air, no sob noted. Left upper arm remains swollen. VSS all shift. Plan is to have surgery eval on the L upper extremity.
--- NOTE | 2022-06-13 07:26 | NUR ---
Report received from nightshift RN. Care taken over for dayshift.
[2022-06-13 08:00] VITALS: BP 105/34
[2022-06-13] MEDS: DOCUSATE SODIUM 100 MG GELCAP PO SCH (08:25)
[2022-06-13] MEDS: HYDROmorphone 2 MG TAB PO PRN (08:26)
[2022-06-13 12:00] VITALS: BP 105/34
[2022-06-13 16:00] VITALS: BP 137/39
--- NOTE | 2022-06-13 19:30 | NUR ---
RECEIVED REPORT FORM DAY SHIFT NURSE SWAPNA FOR CONTINUITY OF CARE. PT AWAKE IN BED. RESPIRATIONS EVEN AND UNLABORED ON 2L NC. NO DISTRESS NOTED. NO C/O OF PAIN. PRAMOD AV FISTULA WITH BLISTERS COVERED WITH DRESSING. WITH RIJ TUNNELED HD PERMACATH. RIGHT HAND SWOLLEN, ELEVATED. CALL LIGHT WITHIN REACH. SAFETY PRECAUTIONS IN PLACE.
[2022-06-13 20:00] VITALS: BP 120/34
--- NOTE | 2022-06-14 01:34 | NUR ---
REPOSITIONED PT. NO C/O OF PAIN. NO DISTRESS NOTED.
--- NOTE | 2022-06-14 05:33 | NUR ---
V/S TAKEN, STABLE. NO COMPLAINT OF ANY DISCOMFORT. PT REPOSITIONED. NO DISTRESS NOTED. SAFETY PRECAUTIONS IN PLACE.
--- NOTE | 2022-06-14 07:25 | NUR ---
GAVE BEDSIDE REPORT TO DAY SHIFT RN SWAPNA FOR CONTINUITY OF CARE. ENDORSED TO FOLLOW-UP DIALYSIS ORDER. PT DIALYSIS SCHEDULE . ALL NEEDS MET THROUGHOUT SHIFT. PT IS STABLE.
--- NOTE | 2022-06-14 07:30 | NUR ---
REPORT RECEIVED FROM NIGHTSHIFT RN, CARE TAKEN OVER FOR DAYSHIFT.
[2022-06-14] MEDS ORDERED: DEXTROSE 50% 50 ML SYR IVP PRN (07:50)
[2022-06-14 08:00] VITALS: BP 120/34
[2022-06-14] MEDS: DOCUSATE SODIUM 100 MG GELCAP PO SCH (09:31)
--- NOTE | 2022-06-14 10:30 | NUR ---
INFORMED MD AT BEDSIDE DR BARAKAT THAT PT IS DUE FOR DIALYSIS AND NEEDS LABS.
[2022-06-14] MEDS: BLOOD GLUCOSE MONITORING 1 DEV DEV FS SCH ×3 (11:40→20:46)
[2022-06-14] MEDS: INSULIN LISPRO SLIDING SCALE 100 UNITS/ML VIAL SUBQ PRN (11:43)
[2022-06-14 11:52] LABS: BASOPHILS # (AUTO) 0.1 K/uL (0.00-0.22); BASOPHILS % (AUTO) 1.3 % (0.0-2.0); EOSINOPHILS # (AUTO) 0.1 K/uL (0-0.4); EOSINOPHILS % (AUTO) 2.7 % (0.0-4.0); HEMATOCRIT 24.9 % (36-48); HEMOGLOBIN 8.1 g/dL (12.0-16.0); LYMPHOCYTES # (AUTO) 0.7 K/uL (2.5-16.5); LYMPHOCYTES % (AUTO) 16.1 % (20.5-51.1); MEAN CORPUSCULAR HEMOGLOBIN 32 pg (27-31); MEAN CORPUSCULAR HGB CONC 33 g/dL (33-37); MEAN CORPUSCULAR VOLUME 96.6 fL (80-94); MONOCYTES # (AUTO) 0.4 K/uL (0.8-1.0); NEUTROPHILS # (AUTO) 3.3 K/uL (1.8-7.7); NEUTROPHILS % (AUTO) 70.9 % (42.2-75.2); PLATELET COUNT (AUTO) 127 K/uL (140-450); RED BLOOD CELL COUNT(AUTO) 2.58 MIL/uL (4.20-5.40); RED CELL DISTRIBUTION WIDTH 15.1 % (11.6-13.7); WHITE BLOOD COUNT (AUTO) 4.6 K/uL (4.8-10.8)
[2022-06-14 12:11] LABS: ANION GAP 12.2 (8-16); CARBON DIOXIDE 24.5 mmol/L (21-32); MAGNESIUM 2.2 mg/dL (1.8-2.4); POTASSIUM 4.7 mmol/L (3.5-5.1); TOTAL BILIRUBIN 0.5 mg/dL (0.0-1.0)
[2022-06-14 12:14] LABS: CREATININE 5.2 mg/dL (0.6-1.3)
[2022-06-14] MEDS: NON ADHERENT DRESSING TP SCH (13:00)
--- NOTE | 2022-06-14 13:00 | NUR ---
INFORMED MD OF CRITICAL BUN AND CREATINE 46 AND 5.2
[2022-06-14] MEDS: HYDROcodone/APAP 5/325 MG 1 TAB TAB PO PRN (15:19)
[2022-06-14 16:00] VITALS: BP 126/34
--- NOTE | 2022-06-14 19:22 | NUR ---
RECEIVED REPORT FROM DAY SHIFT DIANNE BARCENAS FOR CONTINUITY OF CARE. PT RESTING IN BED, AROUSABLE. RESPIRATIONS EVEN AND UNLABORED ON 2L NC. PRAMOD AV FISTULA WITH BLISTERS, COVERED WITH DRESSING. RIGHT HAND SWOLLEN, ELEVATED. PT HAS RIJ TUNNELED HD PERMACATH, INTACT. PER DIANNE BARCENAS, PT JUST HAD HD, 2L OUT. PT CLOSELY MONITORED. CALL LIGHT WITHIN REACH. SAFETY PRECAUTIONS IN PLACE.
[2022-06-14 20:00] VITALS: BP 128/33
--- NOTE | 2022-06-14 20:46 | NUR ---
BLOOD SUGAR CHECK DONE. NO COVERAGE GIVEN FOR BS 142.
--- NOTE | 2022-06-14 22:14 | NUR ---
PT CHECKED AND SEEN BY DR. BAILEY.
[2022-06-14] MEDS: HYDROmorphone 2 MG TAB PO PRN (22:28)
--- NOTE | 2022-06-14 22:28 | NUR ---
PT COMPLAINED OF UPPER EXTREMITIES AND DEVRIES 9/10. PRN PAIN MED ADMINISTERED. V/S STABLE, WITHIN NORMAL RANGE.
--- NOTE | 2022-06-15 03:20 | NUR ---
PT SLEEPING. NO ACUTE DISTRESS NOTED. SAFETY MEASURES IN PLACE.
[2022-06-15 04:00] VITALS: BP 124/30
--- NOTE | 2022-06-15 07:22 | NUR ---
GAVE BEDSIDE REPORT TO DAY SHIFT RN ROMEO FOR CONTINUITY OF CARE. ALL NEEDS MET THROUGHOUT SHIFT. PT IS STABLE.
[2022-06-15 07:23] LABS: BASOPHILS % (AUTO) 0.9 % (0.0-2.0); EOSINOPHILS # (AUTO) 0.1 K/uL (0-0.4); EOSINOPHILS % (AUTO) 3.5 % (0.0-4.0); HEMATOCRIT 24.2 % (36-48); HEMOGLOBIN 7.8 g/dL (12.0-16.0); LYMPHOCYTES # (AUTO) 0.8 K/uL (2.5-16.5); LYMPHOCYTES % (AUTO) 18.9 % (20.5-51.1); MEAN CORPUSCULAR HEMOGLOBIN 31 pg (27-31); MEAN CORPUSCULAR HGB CONC 32 g/dL (33-37); MEAN CORPUSCULAR VOLUME 96.4 fL (80-94); MONOCYTES # (AUTO) 0.4 K/uL (0.8-1.0); MONOCYTES % (AUTO) 9.9 % (1.7-9.3); NEUTROPHILS # (AUTO) 2.7 K/uL (1.8-7.7); NEUTROPHILS % (AUTO) 66.8 % (42.2-75.2); PLATELET COUNT (AUTO) 134 K/uL (140-450); RED BLOOD CELL COUNT(AUTO) 2.51 MIL/uL (4.20-5.40); RED CELL DISTRIBUTION WIDTH 14.9 % (11.6-13.7)
[2022-06-15] MEDS: BLOOD GLUCOSE MONITORING 1 DEV DEV FS SCH ×2 (07:32→12:06)
--- NOTE | 2022-06-15 07:58 | NUR ---
NURSES NOTE V RECEIVED PATIENT ON BED SIDE , A/OX3 , VSS , ON ROOM AIR , ON RENAL DIET , ON NASAL CANNULA 2 LITER O2 , CONTINENT X2 NO COMPLAIN AT THIS TIME , WILL CONTINUE OBSERVE .
[2022-06-15 08:33] LABS: ALBUMIN 1.9 g/dL (3.4-5.0); ANION GAP 10.8 (8-16); CARBON DIOXIDE 29.9 mmol/L (21-32); CREATININE 3.4 mg/dL (0.6-1.3); POTASSIUM 3.7 mmol/L (3.5-5.1); TOTAL BILIRUBIN 0.6 mg/dL (0.0-1.0)
[2022-06-15] MEDS: DOCUSATE SODIUM 100 MG GELCAP PO SCH (08:53)
[2022-06-15 09:54] VITALS: BP 149/42
[2022-06-15] MEDS: NON ADHERENT DRESSING TP SCH (11:37)
[2022-06-15] MEDS: INSULIN LISPRO SLIDING SCALE 100 UNITS/ML VIAL SUBQ PRN (12:06)
--- NOTE | 2022-06-15 12:52 | NUR ---
DC PLANNING: PATIENT HAS A DC ORDER TO RETURN TO [facility]. FAXED THE PAPERWORK TO [facility] AND JULIANE DUNBAR FOR HER DIALYSIS CHAIR TIME AT 1 PM . CAN GO TO ROOM 404A NUMBER TO GIVE REPORT [phone] ARRANGED TRANSPORT WITH [facility] ETA 1600. CM TO FOLLOW
--- NOTE | 2022-06-15 13:23 | NUR ---
[facility]YRA PLANNING [facility]SP[facility] REQUEST FORM FAXED TO [facility] [phone]. SW TO FOLLOW. Addendum: 06/15/22 at 1637 by Parveen HALEY 15:45- FIELDED CALL FROM JUAN MANUEL WITH [facility] WHO REPORTS TRANSPORTATION HAS BEEN ARRANGED WITH [employer], , REPORT PROGRAMMER TIME 4PM, AUTH [id number]. ENDORSED TO PTS NURSE.
--- NOTE | 2022-06-15 13:25 | NUR ---
NURSES NOTE PATIENT HAS DISCHARGE ORDER TO GO BACK TO [facility] , I CALL [facility] , REPORT GIVEN [place] [phone] .
[2022-06-15 16:42] VITALS: BP 148/79
--- NOTE | 2022-06-15 16:55 | NUR ---
NURSES NOTE PATIENT PICKED UP BY EMS , VSS , NO COMPLAIN, ARM BAND REMOVED REPORT GIVEN EARLY ALL DOCUMENT SIGN BY PT HER4 SISTER INFORMED ,
== END 2022-06-15 16:58 | DRG 384 ==
LOC: MED 13:27 → MTU 17:36 → UNDOADMOB 17:36 → MTU 17:56 → INTOOBSV 06-08 15:57 → OBSVTOIN 06-08 15:57 → MTU 06-11 06:09
PROVIDERS: ADMIT Hospitalist; ATTEND Hospitalist
PROC: 5A1D70Z Performance of Urinary Filtration, Intermittent, Less than 6 Hours Per Day (ICD-10-PCS; 2022-06-08)
PROC: 5A1D70Z Performance of Urinary Filtration, Intermittent, Less than 6 Hours Per Day (ICD-10-PCS; 2022-06-08)
PROC: 5A1D70Z Performance of Urinary Filtration, Intermittent, Less than 6 Hours Per Day (ICD-10-PCS; 2022-06-10)
PROC: 02PAX3Z Removal of Infusion Device from Heart, External Approach (ICD-10-PCS; 2022-06-11)
PROC: 0JH63XZ Insertion of Tunneled Vascular Access Device into Chest Subcutaneous Tissue and Fascia, Percutaneous Approach (ICD-10-PCS; 2022-06-11)
PROC: 02H633Z Insertion of Infusion Device into Right Atrium, Percutaneous Approach (ICD-10-PCS; 2022-06-11)
PROC: B5181ZA Fluoroscopy of Superior Vena Cava using Low Osmolar Contrast, Guidance (ICD-10-PCS; 2022-06-11)
PROC: B548ZZA Ultrasonography of Superior Vena Cava, Guidance (ICD-10-PCS; 2022-06-11)
PROC: 0JPT3XZ Removal of Tunneled Vascular Access Device from Trunk Subcutaneous Tissue and Fascia, Percutaneous Approach (ICD-10-PCS; principal; 2022-06-11 12:20)
PROC: 5A1D70Z Performance of Urinary Filtration, Intermittent, Less than 6 Hours Per Day (ICD-10-PCS; 2022-06-12)
PROC: 5A1D70Z Performance of Urinary Filtration, Intermittent, Less than 6 Hours Per Day (ICD-10-PCS; 2022-06-14)
PROC: 30233N1 Transfusion of Nonautologous Red Blood Cells into Peripheral Vein, Percutaneous Approach (ICD-10-PCS; 2022-06-14)
DX: S40.022A Contusion of left upper arm, initial encounter (principal); E43 Unspecified severe protein-calorie malnutrition; I12.0 Hypertensive chronic kidney disease with stage 5 chronic kidney disease or end stage renal disease; I80.8 Phlebitis and thrombophlebitis of other sites; D63.8 Anemia in other chronic diseases classified elsewhere; E83.39 Other disorders of phosphorus metabolism; N18.6 End stage renal disease; E11.22 Type 2 diabetes mellitus with diabetic chronic kidney disease; E87.5 Hyperkalemia; Z20.822 Contact with and (suspected) exposure to COVID-19; K21.9 Gastro-esophageal reflux disease without esophagitis; E03.9 Hypothyroidism, unspecified; E87.70 Fluid overload, unspecified; I25.10 Atherosclerotic heart disease of native coronary artery without angina pectoris; E87.6 Hypokalemia; Z88.8 Allergy status to other drugs, medicaments and biological substances; Z79.4 Long term (current) use of insulin; Z68.27 Body mass index [BMI] 27.0-27.9, adult; Y84.9 Medical procedure, unspecified as the cause of abnormal reaction of the patient, or of later complication, without mention of misadventure at the time of the procedure
CPT/HCPCS: 96374; 96375; 99285; G0378; 36415; 71045; 80048; 80053; 82948; 83735; 83880; 84100; 84132; 85025; 85610; 85730; 86886; 86900; 86901; 86920; 87040; 87081; 93005; 93971; C1894; J0610; J1644; J1815; J1940; J2405; J2704; J2997; J3490; P9016; Q0092; Q9967